=== PATIENT | female | born 1950 | race Caucasian/White ===

== ENCOUNTER 2016-08-30 21:31 | Inpatient (IN) | payer MEDICARE ==
[~2016-08-30] VITALS: Ht 170.2 cm; Wt 80.0 kg
[~2016-08-30 21:31] MED LIST: ALPR.25 PO; CIPR-9 PO; CLAR10CA3 PO; DOCET20P IV; LACT PO; LOSA50TA PO; NAPR220T95 PO; ZANT150T2 PO; [UNRECOGNIZED DRUG - CODE] IV; [UNRECOGNIZED DRUG - OTHER] PO
[2016-08-30 21:33] VITALS: BP 147/73; PULSE 132; RESP 20; TEMP 98.4; O2SAT 97
[2016-08-30] MEDS ORDERED: SODIUM CHLORIDE 0.9% FLUSH 5 ML FLUSH IVF PRN (22:15)
[2016-08-30] MEDS ORDERED: diphenhydrAMINE HCL 50 MG/ML VIAL IV PUSH ONE (22:15)
--- NOTE | 2016-08-30 22:49 | RADRPT ---
EXAM DATE/TIME: 08/30/2016 22:33 [place] COMPARISON: CHEST PA & LAT, June 27, 2016, 21:47. INDICATIONS : Fever. MEDICAL HISTORY : Carcinoma, breast. SURGICAL HISTORY : None. ENCOUNTER: Initial ACUITY: 1 day PAIN SCORE: 0/10 LOCATION: Bilateral chest FINDINGS: PA and lateral views of the chest demonstrate the lungs to be symmetrically aerated without evidence of mass, infiltrate or effusion. The cardiomediastinal contours are unremarkable. Osseous structure s are intact. CONCLUSION: No acute disease. Harry Orozco MD FACR on August 30, 2016 at 22:47 Board Certified Radiologist. This report was verified electronically.
[2016-08-30 23:00] VITALS: BP 135/68; PULSE 116; RESP 18; O2SAT 99
[2016-08-30 23:15] LABS: HEMATOCRIT 36.7 % (35.0-46.0); MEAN CELL VOLUME 92.7 FL (80.0-100.0); MEAN CORPUSCULAR HEMOGLOBIN 31.1 PG (27.0-34.0); MEAN CORPUSCULAR HGB CONC 33.5 % (32.0-36.0); PLATELET COUNT 127 TH/MM3 (150-450); RED BLOOD COUNT 3.96 MIL/MM3 (4.00-5.30); RED CELL DISTRIBUTION WIDTH 16.6 % (11.6-17.2); WHITE BLOOD COUNT 14.9 TH/MM3 (4.0-11.0)
[2016-08-30 23:17] LABS: HEMO FLAGS AUTO DIFF
[2016-08-30 23:18] LABS: APTT (PATIENT) 24.3 SEC (24.3-30.1); PROTHROMBIN TIME - PATIENT 10.8 SEC (9.8-11.6)
[2016-08-30 23:23] LABS: BACTERIA, URINE RARE /hpf; BLOOD, URINE TRACE (NEG); COMMENT (UR) CULTURE INDICATED; CULTURE IF INDICATED CULTURE INDICATED; GLUCOSE,URINE NEG (NEG); KETONE, URINE NEG (NEG); MUCUS URINE FEW /lpf (OCC); NITRITE,URINE NEG (NEG); PH, URINE 5.5 (5.0-8.5); SQUAMOUS EPITHELIAL CELL URINE 1 /hpf (0-5); TRANSITIONAL EPI CELLS, URINE 2 /hpf; URINE COLOR YELLOW (YELLW/STRAW)
[2016-08-30 23:29] LABS: ALKALINE PHOSPHATASE 92 U/L (45-117); ALT (GPT) 31 U/L (10-53); ANION GAP 10 MEQ/L (5-15); AST (GOT) 31 U/L (15-37); BICARBONATE 25.3 MEQ/L (21.0-32.0); BLOOD UREA NITROGEN 15 MG/DL (7-18); CHLORIDE 106 MEQ/L (98-107); GLOMERULAR FILTRATION RATE 57 ML/MIN (>89); MAGNESIUM 1.9 MG/DL (1.5-2.5); POTASSIUM 3.7 MEQ/L (3.5-5.1); SODIUM (NA) 141 MEQ/L (136-145); TOTAL BILIRUBIN ADULT 0.6 MG/DL (0.2-1.0)
[2016-08-30 23:49] LABS: BANDS 26 % (0-6); CORRECTED NUCLEATED RBC 3 /100 WBC (0-0); DOHLE BODIES PRESENT (NONE SEEN); METAMYELOCYTES 23 % (0-1); MYELOCYTES 23 % (0-0); NEUTROPHIL # MANUAL DIFF 12.8 TH/MM3 (1.8-7.7); PLATELET ESTIMATE SMEAR LOW (NORMAL); PLATELET MORPHOLOGY NORMAL (NORMAL); POLYS (SEG NEUTROPHILS) 8 % (16-70); PROMYELOCYTES 6 % (0-0); SCAN/DIFF FINAL DIFF MANUAL; WBC DIFF SAMPLE 100
[2016-08-30 23:50] LABS: POLYCHROMASIA 2.1 % (0.0-1.9); TOXIC GRANULATION 2+ (NORMAL)
[2016-08-31] VITALS (9 sets, daily range): BP systolic 116–145; BP diastolic 60–72; PULSE 87–110; RESP 16–20; TEMP 97.7–100.3; O2SAT 93–98
[2016-08-31] MEDS ORDERED: CIPROFLOXACIN 400 MG PREMIX 200 ML IV ONE (00:30)
[2016-08-31] MEDS ORDERED: SODIUM CHLOR 0.9% 1000 ML INJ 1,000 ML IV ONE (00:30)
[2016-08-31] MEDS ORDERED: NALOXONE HCL 0.4 MG/ML AMP IV PRN (02:00)
[2016-08-31] MEDS ORDERED: ALPRAZolam 0.25 MG TAB PO PRN (02:00)
[2016-08-31] MEDS ORDERED: SODIUM CHLORIDE 0.9% FLUSH 5 ML FLUSH FLUSH PRN (02:00)
--- NOTE | 2016-08-31 02:03 | PD ---
HPI Chief Complaint: Fever Time Seen by Provider: 21:57 Travel History International Travel<30 days: No Contact w/Intl Traveler<30days: No Traveled to known affect area: No History of Present Illness HPI Patient states 6-year-old female with history of breast cancer on chemotherapy followed by Dr. Geoffrey Calix presents today to the emergency department for complaints of fever and rash. Patient states that she's had these reactions after her previous bouts of chemotherapy. She saw Dr. Calix who prescribed her prednisone and Benadryl and states that it has been helping. Patient called the office today and discussed with on-call provider Dr. Epi Ren who recommended coming to the ER to be evaluated. Patient states she's also had fever at home to a MAXIMUM TEMPERATURE of 101.5. Denies any cough shortness of breath dysuria states symptoms began on for approximately 2 days. Last time she had this could have urinary tract infection and to be admitted to the hospital. PFSH Past Medical History Arthritis: Yes (generalized) Asthma: Yes (when around dogs) Cancer: Yes (breast--2015) Cardiovascular Problems: Yes High Cholesterol: Yes (diet controlled) Chemotherapy: Yes (started june 2016) Diminished Hearing: No Endocrine: No Gastrointestinal Disorders: Yes (gastroparesis) GERD: Yes Genitourinary: No Hypertension: Yes Immune Disorder: No Implanted Vascular Access Dvce: Yes Musculoskeletal: Yes Neurologic: No Psychiatric: No Reproductive: No Respiratory: Yes Immunizations Current: Yes Triglycerides - High: Yes ?: Not Menopausal: Yes Past Surgical History Appendectomy: Yes Cholecystectomy: Yes Genitourinary Surgery: Yes (bowel resection--1992--ruptured appendix) Hysterectomy: Yes Other Surgery: Yes (lumpectomy--2015) Social History Alcohol Use: Yes (occasional) Tobacco Use: No Substance Use: No Allergies-Medications (Allergen,Severity, Reaction): Coded Allergies: Penicillin (Verified Allergy, Severe, Hives, 06/27/16) Reported Meds & Prescriptions Reported Meds & Active Scripts Active Acidophilus/l-Sporogenes (Lactobacillus Acidophilus) 1 Tab Tab 1 Tab PO Q12HR 30 Days Reported Xanax (Alprazolam) 0.25 Mg Tab 0.25 Mg PO HS PRN Zantac (Ranitidine HCl) 150 Mg Tab 150 Mg PO HS [bephanophal] 1 Cap PO TID Losartan (Losartan Potassium) 50 Mg Tab 50 Mg PO DAILY Review of Systems Except as stated in HPI: all other systems reviewed are Neg Physical Exam Narrative GENERAL: Well-developed well-nourished alopecia distress. Significant hives. SKIN: Warm and dry. Patient has hives confluent on the scalp and posterior neck , there also present on the chest abdomen and lower extremities. HEAD: Atraumatic. Normocephalic. EYES: Pupils equal and round. No scleral icterus. No injection or drainage. ENT: No nasal bleeding or discharge. Mucous membranes pink and moist. NECK: Trachea midline. No JVD. CARDIOVASCULAR: Regular rate and rhythm. No murmur appreciated. RESPIRATORY: No accessory muscle use. Clear to auscultation. Breath sounds equal bilaterally. GASTROINTESTINAL: Abdomen soft, non-tender, nondistended. Hepatic and splenic margins not palpable. MUSCULOSKELETAL: No obvious deformities. No clubbing. No cyanosis. No edema. NEUROLOGICAL: Awake and alert. No obvious cranial nerve deficits. Motor grossly within normal limits. Normal speech. PSYCHIATRIC: Appropriate mood and affect; insight and judgment normal. Data Data Last Documented VS Vital Signs Date Time Temp Pulse Resp B/P Pulse Ox O2 Delivery O2 Flow Rate FiO2 08/30/16 21:47 Room Air 08/30/16 21:33 98.4 132 20 147/73 97 Orders Complete Blood Count With Diff (08/30/16 22:05) Comprehensive Metabolic Panel (08/30/16 22:05) Magnesium (Mg) (08/30/16 22:05) Prothrombin Time / Inr (Pt) (08/30/16 22:05) Act Partial Throm Time (Ptt) (08/30/16 22:05) Lipase (08/30/16 22:05) Ecg Monitoring (08/30/16 22:05) Bilateral Bp Monitoring (08/30/16 22:05) Iv Access Insert/Monitor (08/30/16 22:05) Oximetry (08/30/16 22:05) Oxygen Administration (08/30/16 22:05) Sodium Chloride 0.9% Flush (Ns Flush) (08/30/16 22:15) Diphenhydramine Inj (Benadryl Inj) (08/30/16 22:15) Chest, Pa & Lat (08/30/16 ) Urinalysis - C+S If Indicated (08/30/16 22:38) Urine Culture (08/30/16 23:10) Sodium Chlor 0.9% 1000 Ml Inj (Ns 1000 M (08/31/16 00:30) Ciprofloxacin 400 Mg Premix (Cipro 400 M (08/31/16 00:30) Lactic Acid (08/31/16 00:17) Admit Order (Ed Use Only) (08/31/16 ) Labs Laboratory Tests Test 08/30/16 08/30/16 23:00 23:10 White Blood Count 14.9 TH/MM3 Red Blood Count 3.96 MIL/MM3 Hemoglobin 12.3 GM/DL Hematocrit 36.7 % Mean Corpuscular Volume 92.7 FL Mean Corpuscular Hemoglobin 31.1 PG Mean Corpuscular Hemoglobin 33.5 % Concent Red Cell Distribution Width 16.6 % Platelet Count 127 TH/MM3 Mean Platelet Volume 8.7 FL Neutrophils (%) (Auto) % Lymphocytes (%) (Auto) % Monocytes (%) (Auto) % Eosinophils (%) (Auto) % Basophils (%) (Auto) % Neutrophils # (Auto) TH/MM3 Lymphocytes # (Auto) TH/MM3 Monocytes # (Auto) TH/MM3 Eosinophils # (Auto) TH/MM3 Basophils # (Auto) TH/MM3 CBC Comment AUTO DIFF Differential Total Cells 100 Counted Neutrophils % (Manual) 8 % Band Neutrophils % 26 % Lymphocytes % 6 % Monocytes % 8 % Neutrophils # (Manual) 12.8 TH/MM3 Metamyelocytes 23 % Myelocytes 23 % Promyelocytes 6 % Nucleated Red Blood Cells 3 /100 WBC Differential Comment FINAL DIFF MANUAL Toxic Granulation 2+ Dohle Bodies PRESENT Platelet Estimate LOW Platelet Morphology Comment NORMAL Polychromasia 2.1 % Red Cell Morphology Comment NORMAL Prothrombin Time 10.8 SEC Prothromb Time International 1.0 RATIO Ratio Activated Partial 24.3 SEC Thromboplast Time Sodium Level 141 MEQ/L Potassium Level 3.7 MEQ/L Chloride Level 106 MEQ/L Carbon Dioxide Level 25.3 MEQ/L Anion Gap 10 MEQ/L Blood Urea Nitrogen 15 MG/DL Creatinine 0.98 MG/DL Estimat Glomerular Filtration 57 ML/MIN Rate Random Glucose 151 MG/DL Calcium Level 8.7 MG/DL Magnesium Level 1.9 MG/DL Total Bilirubin 0.6 MG/DL Aspartate Amino Transf 31 U/L (AST/SGOT) Alanine Aminotransferase 31 U/L (ALT/SGPT) Alkaline Phosphatase 92 U/L Total Protein 6.6 GM/DL Albumin 3.3 GM/DL Lipase 136 U/L Urine Color YELLOW Urine Turbidity HAZY Urine pH 5.5 Urine Specific [place] 1.016 Urine Protein NEG mg/dL Urine Glucose (UA) NEG mg/dL Urine Ketones NEG mg/dL Urine Occult Blood TRACE Urine Nitrite NEG Urine Bilirubin NEG Urine Urobilinogen LESS THAN 2.0 MG/DL Urine Leukocyte Esterase MOD Urine RBC 3 /hpf Urine WBC 19 /hpf Urine Squamous Epithelial 1 /hpf Cells Urine Transitional Epithelial 2 /hpf Cells Urine Amorphous Sediment RARE Urine Bacteria RARE /hpf Urine Mucus FEW /lpf Microscopic Urinalysis Comment CULTURE INDICATED MDM Medical Decision Making Medical Screen Exam Complete: Yes Emergency Medical Condition: Yes Differential Diagnosis Hives, UTI, sepsis, neutropenic fever, immunocompromised. Narrative Course Patient was roomed in the emergency department, she appears well and apparent distress. She's not been having any dysuria at this time. She is tachycardic and has pruritic hives. She was given Benadryl IV. This significantly reduced her high burden as well as her symptoms. Labs do show an white blood cell count of 14,000 with 23% bands. She is tachycardic and this would meet surge criteria. Her UA is returned and does show moderate leukocyte Estrace and a non -contaminated sample. This confirms UTI with sepsis. Lactic acid was sent normal saline was started. Heart rate did normalize. Did discuss with Dr. Taylor to recommends overnight observation and start ciprofloxacin given her last urine culture was hopkins sensitive. Lactic acid is 2.3. Discussed with Dr. Wilcox who will admit. Hives most likely from consultation of chemotherapy and air improvement in the emergency department. Diagnosis Primary Impression: Sepsis Qualified Code: A41.9 - Sepsis, due to unspecified organism Additional Impressions: Urinary tract infection Hives Admitting Information Admitting Physician Requests: Admit Condition: Stable Everett Pope MD Aug 31, 2016 02:03
[2016-08-31] MEDS: CEFEPIME INJ 2,000 MG in SODIUM CHLORIDE 0.9% INJ 100 ML IV SCH ×3 (05:08→17:22)
[2016-08-31] MEDS: SODIUM CHLOR 0.9% 1000 ML INJ 1,000 ML IV SCH ×2 (05:09→11:40)
--- NOTE | 2016-08-31 05:32 | HHI.HP ---
[facility] Service [facility] Hospitalists Primary Care Physician Jaydon Diaz MD Admission Diagnosis Sepsis, UTI, Chemo Diagnoses: (1) Hives (2) Urinary tract infection (3) Neutropenic fever (4) Sepsis (5) Diarrhea (6) Nausea & vomiting Chief Complaint: hives, fever 101.6 Travel History International Travel<30 Days: No Contact w/Intl Traveler <30 Da: No Traveled to Known Affected Are: No History of Present Illness Mrs. Cheung is a 66-year-old patient with a history of breast cancer on chemotherapy (followed by Dr. Calix) who presented to the emergency room on 08/30 with complaint of fever and hives. WBC elevated at 14.9, urinalysis suggestive of infection with culture pending. The patient is tachycardic and meets sepsis criteria with leukocytosis and UTI. The patient is seen in the ER where she reports that she developed severe, diffuse, pruritic hives all over her body yesterday- last chemotherapy was given August 22. She took one dose of Biotin yesterday to promote hair growth due to alopecia secondary to chemotherapy. No other medication changes - has taken Biotin in the past without reaction. Denies food allergies. Reports allergies to dogs, cats, dust, and penicillin. She has been having diarrhea, nausea, and vomiting which is most likely due to chemotherapy, however , she did receive Ciprofloxacin for UTI in July. . Review of Systems Constitutional: COMPLAINS OF: Fatigue, Fever Respiratory: DENIES: Cough, Shortness of breath Gastrointestinal: COMPLAINS OF: Diarrhea, Nausea, Vomiting Genitourinary: DENIES: Hematuria, Dysuria Integumentary: COMPLAINS OF: Pruritus, Rash Other all systems are reviewed and are otherwise negative . 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 Gastroparesis Hypertension (more then 10 years.) Osteopenia Rosacea Diverticulosis GERD Endometriosis . Past Surgical History Right lumpectomy and sentinel node bx in 2015 - 04/30/2016 right lumpectomy and right axillary sentinel node Needle bx of right breast in 2016 - Plastic surgery in 2012 - face lift Cholecystectomy in 2008 - 02/08/2009 Appendectomy and partial right colectomy including cecum in 1992 - ruptured appendix with peritonitis. Removal of remaining ovary and endometriosis- Abdominal hysterectomy and single oophorectomy in 1984 . Reported Medications Reported Meds & Active Scripts Active Acidophilus/l-Sporogenes (Lactobacillus Acidophilus) 1 Tab Tab 1 Tab PO Q12HR 30 Days Reported Xanax (Alprazolam) 0.25 Mg Tab 0.25 Mg PO HS PRN Zantac (Ranitidine HCl) 150 Mg Tab 150 Mg PO HS [bephanophal] 1 Cap PO TID Losartan (Losartan Potassium) 50 Mg Tab 50 Mg PO DAILY Allergies: Coded Allergies: Penicillin (Verified Allergy, Severe, Hives, 06/27/16) Active Ordered Medications Current Medications IV Flush (NS Flush) 2 ml UNSCH PRN IVF FLUSH AFTER USING IV ACCESS Last administered on 08/30/16 23:22; Start 08/30/16 at 22:15; Stop 08/31/16 at 02:01 ; Status DC Diphenhydramine HCl 25 mg 25 mg ONCE ONCE IV PUSH Last administered on 23:21; Start 08/30/16 at 22:15; Stop 08/30/16 at 22:16; Status DC Sodium Chloride 1,000 ml @ 999 mls/hr BOLUS ONCE IV Last administered on 08/31 01:33; Start 08/31/16 at 00:30; Stop 08/31/16 at 01:30; Status DC Ciprofloxacin/ Dextrose 200 ml @ 200 mls/hr ONCE ONCE IV Last administered on 08/31/16 01:32; Start 08/31/16 at 00:30; Stop 08/31/16 at 01:29; Status DC Sodium Chloride (NS 1000 ml Inj) 1,000 ml @ 100 mls/hr Q10H IV Last administered on 08/31/16 05:09; Start 08/31/16 at 02:00 IV Flush (NS Flush) 2 ml UNSCH PRN FLUSH FLUSH AFTER USING IV ACCESS; Start at 02:00 IV Flush (NS Flush) 2 ml BID FLUSH ; Start 08/31/16 at 09:00 Ondansetron HCl (Zofran Inj) 4 mg Q6H PRN IVP NAUSEA OR VOMITING; Start at 02:00 Enoxaparin Sodium (Lovenox Inj) 40 mg Q24H SQ ; Start 08/31/16 at 09:00 Naloxone HCl 0.4 mg 0.4 mg UNSCH PRN IV SEE LABEL COMMENTS; Start 08/31/16 at 02:00 Cefepime HCl/ Sodium Chloride (Maxipime Inj/NS Inj) 100 ml @ 200 mls/hr Q8H IV Last administered on 08/31/16t 05:08; Start 08/31/16 at 02:00 Alprazolam (Xanax) 0.25 mg HS PRN PO INSOMNIA; Start 08/31/16 at 02:00 Lactobacillus Acidophilus (Lactinex) 1 tab Q12HR PO ; Start 08/31/16 at 09:00 Losartan Potassium (Cozaar) 50 mg DAILY PO ; Start 08/31/16 at 09:00 Famotidine (Pepcid) 20 mg HS PO ; Start 08/31/16 at 21:00 Family History Small strokes, cerebrovascular dementia - father First cousin with breast CA Mother in her 90's alive and well . Social History Tobacco: denies Alcohol: social . Physical Exam Vital Signs Vital Signs Date Time Temp Pulse Resp B/P Pulse Ox O2 Delivery O2 Flow Rate FiO2 08/31/16 05:13 102 18 119/60 98 08/31/16 01:45 110 18 145/63 98 Room Air 08/31/16 01:42 99.1 109 18 145/63 95 Room Air 08/31/16 01:42 Room Air 08/30/16 23:00 116 18 135/68 99 Room Air 08/30/16 21:47 Room Air 08/30/16 21:33 98.4 132 20 147/73 97 Room Air Physical Exam GENERAL: This is a well-nourished, well-developed patient, in no apparent distress. SKIN: No ecchymoses or lesions. Cool and dry. Diffuse hives on legs, arms, head , chest. Alopecia. HEAD: Atraumatic. Normocephalic. EYES: No scleral icterus. No injection or drainage. ENT: Nose without bleeding, purulent drainage. NECK: Trachea midline. No JVD or lymphadenopathy. CARDIOVASCULAR: Regular rate and rhythm without murmurs, gallops, or rubs. RESPIRATORY: Clear to auscultation. Breath sounds equal bilaterally. No wheezes , rales, or rhonchi. GASTROINTESTINAL: Abdomen soft, non-tender, nondistended. No guarding. MUSCULOSKELETAL: Extremities without clubbing, cyanosis, or edema. No calf tenderness. NEUROLOGICAL: Awake and alert. Motor and sensory grossly within normal limits. Normal speech. . Laboratory Laboratory Tests Test 08/30/16 08/30/16 08/31/16 23:00 23:10 00:45 White Blood Count 14.9 Red Blood Count 3.96 Hemoglobin 12.3 Hematocrit 36.7 Mean Corpuscular Volume 92.7 Mean Corpuscular Hemoglobin 31.1 Mean Corpuscular Hemoglobin 33.5 Concent Red Cell Distribution Width 16.6 Platelet Count 127 Mean Platelet Volume 8.7 Neutrophils (%) (Auto) Lymphocytes (%) (Auto) Monocytes (%) (Auto) Eosinophils (%) (Auto) Basophils (%) (Auto) Neutrophils # (Auto) Lymphocytes # (Auto) Monocytes # (Auto) Eosinophils # (Auto) Basophils # (Auto) CBC Comment AUTO DIFF Differential Total Cells 100 Counted Neutrophils % (Manual) 8 Band Neutrophils % 26 Lymphocytes % 6 Monocytes % 8 Neutrophils # (Manual) 12.8 Metamyelocytes 23 Myelocytes 23 Promyelocytes 6 Nucleated Red Blood Cells 3 Differential Comment FINAL DIFF MANUAL Toxic Granulation 2+ Dohle Bodies PRESENT Platelet Estimate LOW Platelet Morphology Comment NORMAL Polychromasia 2.1 Red Cell Morphology Comment NORMAL Prothrombin Time 10.8 Prothromb Time International 1.0 Ratio Activated Partial 24.3 Thromboplast Time Sodium Level 141 Potassium Level 3.7 Chloride Level 106 Carbon Dioxide Level 25.3 Anion Gap 10 Blood Urea Nitrogen 15 Creatinine 0.98 Estimat Glomerular Filtration 57 Rate Random Glucose 151 Calcium Level 8.7 Magnesium Level 1.9 Total Bilirubin 0.6 Aspartate Amino Transf 31 (AST/SGOT) Alanine Aminotransferase 31 (ALT/SGPT) Alkaline Phosphatase 92 Total Protein 6.6 Albumin 3.3 Lipase 136 Urine Color YELLOW Urine Turbidity HAZY Urine pH 5.5 Urine Specific [place] 1.016 Urine Protein NEG Urine Glucose (UA) NEG Urine Ketones NEG Urine Occult Blood TRACE Urine Nitrite NEG Urine Bilirubin NEG Urine Urobilinogen LESS THAN 2.0 Urine Leukocyte Esterase MOD Urine RBC 3 Urine WBC 19 Urine Squamous Epithelial 1 Cells Urine Transitional Epithelial 2 Cells Urine Amorphous Sediment RARE Urine Bacteria RARE Urine Mucus FEW Microscopic Urinalysis Comment CULTURE INDICATED Lactic Acid Level 2.4 Date/Time Procedure Status Source Growth 08/30/16 23:10 Urine Culture Received Urine Clean Catch Pending Result Diagram: 08/30/16 2300 08/30/16 2300 Imaging Last Impressions Chest X-Ray 08/30/16 0000 Signed Impressions: Service Date/Time: August 22:33 - CONCLUSION: No acute disease. Harry Orozco MD FACR Assessment and Plan Problem List: (1) Hives ICD Code: L50.9 Status: Acute (2) Neutropenic fever ICD Code: D70.9 Status: Acute (3) Urinary tract infection ICD Code: N39.0 Status: Acute (4) Diarrhea ICD Code: R19.7 Status: Acute (5) Nausea & vomiting ICD Code: R11.2 Status: Acute (6) Sepsis ICD Code: A41.9 Status: Acute Assessment and Plan Sepsis - Lactic acid 2.4 - WBC 14.9; patient tachycardia - Normal saline at 100 cc per hour - Cefepime 2 g IV every 8 hours UTI Neutropenic Fever - Empiric antibiotic treatment with cefepime - Urine culture pending; adjust medications as indicated - Consult oncology - patient follows with Dr. Calix for breast cancer Hives - Benadryl 25 mg IV q4h PRN pruritus Diarrhea, n/v - likely secondary to chemotherapy - check for c. diff given recent treatment with ciprofloxacin in July 2016 DVT prophylaxis - lovenox 40 mg subq daily Written by Chata Munoz, acting as scribe for Dr. Gee on 08/31/16 at 05:24. .The documentation accurately reflects the work performed [id number] by me on 08/31/16 at 0524 Discussed Condition With patient, patient's , ER physician, and PRODUCTION HARDENER . Physician Certification 2 Midnight Certification Type: Admission for Inpatient Services Order for Inpatient Services The services are ordered in accordance with Medicare regulations or non- Medicare payer requirements, as applicable. In the case of services not specified as inpatient-only, they are appropriately provided as inpatient services in accordance with the 2-midnight benchmark. Estimated LOS (days): 3 days is the estimated time the patient will need to remain in the hospital, assuming treatment plan goals are met and no additional complications. Post-Hospital Plan: Not yet determined Problem Qualifiers (1) Sepsis: Qualified Code: A41.9 - Sepsis, due to unspecified organism Chata Munoz Aug 31, 2016 05:32 Neftaly Gee MD Aug 31, 2016 08:37
[2016-08-31] MEDS: ENOXAPARIN SODIUM 40 MG/0.4 ML SYRINGE SQ SCH (09:00)
[2016-08-31] MEDS: SODIUM CHLORIDE 0.9% FLUSH 5 ML FLUSH FLUSH SCH ×2 (09:04→20:18)
[2016-08-31] MEDS: LOSARTAN 50 MG TAB PO SCH (09:04)
[2016-08-31] MEDS: LACTOBACILLUS ACIDOPHILUS TAB PO SCH ×2 (09:04→20:18)
[2016-08-31] MEDS: diphenhydrAMINE HCL 50 MG/ML VIAL IV PUSH PRN ×4 (09:09→21:31)
[2016-08-31] MEDS ORDERED: methylPREDNISolone SOD SUCC 125 MG/2 ML VIAL IV PUSH ONE (09:15)
[2016-08-31] MEDS ORDERED: CETIRIZINE HCL 10 MG TAB PO ONE (09:15)
--- NOTE | 2016-08-31 13:37 | HHI.PR ---
Addendum to Inpatient Note Addendum Reason: Additional Documentation Additional Information Discussed with Dr Calix oncology. He recommends starting steroids and also zyrtec as is a reaction from chemo. If patient continues to have rash might consider changing abx Ade Oviedo MD Aug 31, 2016 13:37
[2016-08-31] MEDS: FAMOTIDINE 20 MG TAB PO SCH (20:18)
--- NOTE | 2016-08-31 23:32 | MB ---
cc: LEIGH ANN CARTWRIGHT DATE OF CONSULTATION 08/31/16 REASON FOR CONSULTATION A 66-year female status post chemotherapy with fever and pruritic rash. PATIENT PROFILE The patient is a 66-year-old female. She is . She has two children, a son and daughter. She was born in [place] and has lived in [place] since 1958. 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 She has approximately one drink per week. Her is a CPA. She has never smoked. HISTORY OF PRESENT ILLNESS The patient is a 66-year female who had a right lumpectomy and sentinel lymph node biopsy on 04/30/2016. She was found to have a pathologic T1B N0 M0 ER positive, HER2/radha negative breast cancer; tumor size approximately 1 cm. A mammoprint assay put her in the high risk category. She has been undergoing chemotherapy and received her final cycle of chemotherapy consisting of Cytoxan and Taxotere on 08/22/2016. Yesterday she contacted our office as she was having diffuse hives. She was given antihistamines. Over the evening, she developed a temperature to 101.5. She was instructed to go to the hospital and she has been admitted. She has been placed on cefepime. She continues to have worsening hives. They are pruritic. There has been no desquamation of skin. There is no shortness of breath. No dysuria. PAST SURGICAL HISTORY 1. Core needle biopsy right breast 04/11/2016 revealing well differentiated invasive ductal carcinoma ER 93%, IA zero, HER2/radha negative. 2. Right lumpectomy with residual invasive ductal carcinoma. Overall, grade 3, five axillary lymph nodes negative, final pathology T1B N0 M0 ER positive. 3. On 05/14/2016 the patient had additional surgery for a positive inferior margin with intraductal cancer and final pathology revealed no cancer at margins. 4. Cholecystectomy 5. Plastic surgery 2012 with face left 6. Appendectomy and partial right colectomy including cecum in 1992 for ruptured appendix 7. Abdominal hysterectomy and single oophorectomy 1984 8. Removal of remaining ovary for endometriosis. PAST MEDICAL HISTORY 1. Stage T1B N0 M0 breast cancer 2. Gastroparesis 3. Hypertension 4. Osteopenia 5. Diarrhea 6. Diverticulosis. ALLERGIES PENICILLIN - SKIN RASH AND HIVES MEDICATIONS Prior to admission 1. Xanax 2. Losartan 3. Zantac. FAMILY HISTORY Noncontributory. REVIEW OF SYSTEMS No change in vision or hearing. No chest pain, palpitations, no shortness of breath. No dysuria, frequency, hematuria. No abdominal pain. She has developed a rapidly progressive pruritic rash which is essentially hives. No neurologic or psychiatric problems. LABORATORY DATA Hemoglobin 12, white count 14,000, platelets 127,000. It should be noted that she received Neulasta following her chemotherapy. Lytes, BUN, creatinine, liver function tests are notable only for glucose of 151 and albumin 3.3. Physical Exam: appears well except covered with hives and bald Afebrile, RR 18, Pulse 80, Afebrile Heent: bald Lymphatics: no adenopathy Breasts: no masses heart reg rhythm Lungs clear Abd: soft without tenderness or enlargement of liver or spleen Extrem: no edema Neuro: normal Psychiatric: normal Skin: hives over large portions of the skin Extrem: trace edema ASSESSMENT T1B N0 M0 ER positive breast cancer status post four cycles of Cytoxan Taxotere. She now has extensive hives which I suspect are an allergic reaction. I believe that this is probably responsible for the fevers. PLAN 1. Prednisone 40 mg a day. 2. Zyrtec 1 tablet a day, 3. Given the fevers, would continue cefepime. If hives do not resolve quickly would stop cefepime and would avoid PCNs and Cephalosporins 4. Await results of cultures. 5. The above was discussed with the admitting physician, Dr. Ade Oviedo. MD CARL Harry/ /8:02 PM /11:17 PM [place]
[2016-09-01] VITALS (7 sets, daily range): BP systolic 100–156; BP diastolic 51–88; PULSE 86–102; RESP 17–20; TEMP 97.4–100.2; O2SAT 95–100
[2016-09-01] MEDS: CEFEPIME INJ 2,000 MG in SODIUM CHLORIDE 0.9% INJ 100 ML IV SCH (01:07)
[2016-09-01] MEDS: SODIUM CHLOR 0.9% 1000 ML INJ 1,000 ML IV SCH ×3 (01:08→17:49)
[2016-09-01] MEDS: ONDANSETRON HCL 4 MG/2 ML VIAL IVP PRN ×2 (04:15→08:37)
[2016-09-01] MEDS: diphenhydrAMINE HCL 50 MG/ML VIAL IV PUSH PRN ×5 (06:20→21:44)
[2016-09-01 07:57] LABS: AUTOMATED NEUTROPHIL # 39.9 TH/MM3 (1.8-7.7); BASOPHIL # 0.1 TH/MM3 (0-0.2); BASOPHIL % 0.3 % (0.0-2.0); HEMATOCRIT 34.8 % (35.0-46.0); LYMPH % 2.2 % (9.0-44.0); LYMPHOCYTE # 0.9 TH/MM3 (1.0-4.8); MEAN CELL VOLUME 93.5 FL (80.0-100.0); MEAN CORPUSCULAR HEMOGLOBIN 30.5 PG (27.0-34.0); MEAN CORPUSCULAR HGB CONC 32.6 % (32.0-36.0); MONO % 2.1 % (0.0-8.0); NEUT % 95.4 % (16.0-70.0); PLATELET COUNT 168 TH/MM3 (150-450); RED BLOOD COUNT 3.72 MIL/MM3 (4.00-5.30); RED CELL DISTRIBUTION WIDTH 16.6 % (11.6-17.2); WHITE BLOOD COUNT 41.8 TH/MM3 (4.0-11.0)
[2016-09-01 08:08] LABS: HEMO FLAGS AUTO DIFF
[2016-09-01] MEDS: ENOXAPARIN SODIUM 40 MG/0.4 ML SYRINGE SQ SCH ×2 (08:27→13:07)
[2016-09-01 08:28] LABS: BICARBONATE 25.2 MEQ/L (21.0-32.0)
[2016-09-01] MEDS: SODIUM CHLORIDE 0.9% FLUSH 5 ML FLUSH FLUSH SCH ×2 (08:28→21:47)
[2016-09-01 08:32] LABS: POTASSIUM 2.9 MEQ/L (3.5-5.1)
[2016-09-01] MEDS: predniSONE 20 MG TAB PO SCH (08:35)
[2016-09-01] MEDS: LOSARTAN 50 MG TAB PO SCH (08:35)
[2016-09-01] MEDS: CETIRIZINE HCL 10 MG TAB PO SCH (08:36)
[2016-09-01] MEDS: LACTOBACILLUS ACIDOPHILUS TAB PO SCH (08:36)
[2016-09-01] MEDS ORDERED: CIPROFLOXACIN 250 MG TAB PO SCH (09:00)
[2016-09-01] MEDS ORDERED: diphenhydrAMINE HCL 50 MG/ML VIAL IV PUSH ONE (09:45)
[2016-09-01 10:37] LABS: BANDS 45 % (0-6); DOHLE BODIES PRESENT (NONE SEEN); METAMYELOCYTES 9 % (0-1); MYELOCYTES 3 % (0-0); NEUTROPHIL # MANUAL DIFF 38.9 TH/MM3 (1.8-7.7); PLATELET ESTIMATE SMEAR NORMAL (NORMAL); PLATELET MORPHOLOGY NORMAL (NORMAL); POLYS (SEG NEUTROPHILS) 32 % (16-70); PROMYELOCYTES 4 % (0-0); SCAN/DIFF FINAL DIFF MANUAL; TOXIC GRANULATION 3+ (NORMAL); WBC DIFF SAMPLE 100
[2016-09-01] MEDS ORDERED: LEVOFLOXACIN 750 MG PREMIX INJ 150 ML IV SCH (10:45)
--- NOTE | 2016-09-01 11:08 | HHI.PR ---
Subjective Remarks Patient is in bed, says rash has improved on the head only. Says is red and very itchy. No fever or chills. Was nauseated overnight and did vomit once. Also noticed her hands are swollen today. No nausea in the morning and was able to keep down food. Objective Vitals Vital Signs Date Time Temp Pulse Resp B/P Pulse Ox O2 Delivery O2 Flow Rate FiO2 09/01/16 08:00 97.4 91 19 156/72 100 09/01/16 04:00 97.6 95 20 143/88 97 09/01/16 00:00 97.8 86 20 135/76 97 08/31/16 20:27 98 08/31/16 20:00 97.7 97 20 116/61 96 08/31/16 15:49 99.1 99 18 127/61 93 08/31/16 12:00 100.3 106 18 122/60 96 I/O 08/31/16 08/31/16 08/31/16 09/01/16 09/01/16 09/01/16 06:59 14:59 22:59 06:59 14:59 22:59 Intake Total 2862 ml 858 ml 0 ml 120 ml Output Total 750 ml 300 ml 275 ml Balance 2112 ml 558 ml -275 ml 120 ml Intake Oral 720 ml 120 ml 0 ml 120 ml IV Total 2142 ml 738 ml Output Urine Total 750 ml 300 ml 250 ml Emesis 25 ml # Bowel Movements 1 Result Diagram: 09/01/16 0620 09/01/16 0620 Imaging Last Impressions Chest X-Ray 08/30/16 0000 Signed Impressions: Service Date/Time: August 22:33 - CONCLUSION: No acute disease. Harry Orozco MD FACR Objective Remarks GENERAL: This is a well-nourished, well-developed patient, in no apparent distress. SKIN: Diffuse hives on legs, arms, head, chest. Alopecia. Hives on head are improving. No ecchymoses or lesions. Cool and dry. HEAD: Atraumatic. Normocephalic. EYES: No scleral icterus. No injection or drainage. ENT: Nose without bleeding, purulent drainage. NECK: Trachea midline. No JVD or lymphadenopathy. CARDIOVASCULAR: Regular rate and rhythm without murmurs, gallops, or rubs. RESPIRATORY: Clear to auscultation. Breath sounds equal bilaterally. No wheezes , rales, or rhonchi. GASTROINTESTINAL: Abdomen soft, non-tender, nondistended. No guarding. MUSCULOSKELETAL: Extremities without clubbing, cyanosis, or edema. No calf tenderness. NEUROLOGICAL: Awake and alert. Motor and sensory grossly within normal limits. Normal speech. A/P Problem List: (1) Hives ICD Code: L50.9 Status: Acute (2) Neutropenic fever ICD Code: D70.9 Status: Acute (3) Urinary tract infection ICD Code: N39.0 Status: Acute (4) Diarrhea ICD Code: R19.7 Status: Acute (5) Nausea & vomiting ICD Code: R11.2 Status: Acute (6) Sepsis ICD Code: A41.9 Status: Acute Assessment and Plan Sepsis - Lactic acid 2.4 - WBC 14.9 and tachycardia on admission - WBC spiked to 41.8K 09/01/16 - Normal saline at 100 cc per hour - Cefepime 2 g IV every 8 hours . DC cefepime and start levaquin - Discussed with Kori BELL/ Dr Gudino from hem/onc service. DC losartan and lactobacillus as may cause rash. Patient tachycardic and also with elevated BP will start metoprolol 12.5 bid. Also Change antibiotic to levaquin IV as patient with marked leukocytosis (note patient had neulasta 1 week prior) Patient also has a PORT that is not working well. - Will consult ID specialist as well. UTI Neutropenic Fever - Empiric antibiotic treatment with levaquin - Urine culture pending; adjust medications as indicated - Consult oncology - patient follows with Dr. Calix for breast cancer Hives - Benadryl 25 mg IV q4h PRN pruritus - Add prednisone 40 mg po daily - Add topical antipruritics Diarrhea, n/v - likely secondary to chemotherapy - check for c. diff given recent treatment with ciprofloxacin in July 2016 DVT prophylaxis - lovenox 40 mg subq daily Discussed Condition With patient, patient's , nurse, hem/onc service Problem Qualifiers (1) Sepsis: Qualified Code: A41.9 - Sepsis, due to unspecified organism Ade Oviedo MD Sep 01, 2016 11:08
--- NOTE | 2016-09-01 11:11 | PD.ONC.PN ---
Subjective Subjective Remarks Afebrile overnight. Patient states she continues to have itching welts. She ddenies cough or urinary pain. No difficulty breathing. Objective Data Date Time Temp Pulse Resp B/P Pulse Ox O2 Delivery O2 Flow Rate FiO2 09/01/16 08:00 97.4 91 19 156/72 100 09/01/16 04:00 97.6 95 20 143/88 97 09/01/16 00:00 97.8 86 20 135/76 97 08/31/16 20:27 98 08/31/16 20:00 97.7 97 20 116/61 96 08/31/16 15:49 99.1 99 18 127/61 93 08/31/16 12:00 100.3 106 18 122/60 96 09/01/16 09/01/16 09/01/16 07:00 15:00 23:00 Intake Total 0 ml 120 ml Output Total 275 ml Balance -275 ml 120 ml Result Diagram: 09/01/16 0620 09/01/16 0620 Laboratory Results Laboratory Tests Test 09/01/16 06:20 White Blood Count 41.8 TH/MM3 Red Blood Count 3.72 MIL/MM3 Hemoglobin 11.4 GM/DL Hematocrit 34.8 % Mean Corpuscular Volume 93.5 FL Mean Corpuscular Hemoglobin 30.5 PG Mean Corpuscular Hemoglobin 32.6 % Concent Red Cell Distribution Width 16.6 % Platelet Count 168 TH/MM3 Mean Platelet Volume 8.8 FL Neutrophils (%) (Auto) 95.4 % Lymphocytes (%) (Auto) 2.2 % Monocytes (%) (Auto) 2.1 % Eosinophils (%) (Auto) 0.0 % Basophils (%) (Auto) 0.3 % Neutrophils # (Auto) 39.9 TH/MM3 Lymphocytes # (Auto) 0.9 TH/MM3 Monocytes # (Auto) 0.9 TH/MM3 Eosinophils # (Auto) 0.0 TH/MM3 Basophils # (Auto) 0.1 TH/MM3 CBC Comment AUTO DIFF Differential Total Cells 100 Counted Neutrophils % (Manual) 32 % Band Neutrophils % 45 % Lymphocytes % 2 % Monocytes % 5 % Neutrophils # (Manual) 38.9 TH/MM3 Metamyelocytes 9 % Myelocytes 3 % Promyelocytes 4 % Differential Comment FINAL DIFF MANUAL Toxic Granulation 3+ Dohle Bodies PRESENT Platelet Estimate NORMAL Platelet Morphology Comment NORMAL Red Cell Morphology Comment NORMAL Sodium Level 144 MEQ/L Potassium Level 2.9 MEQ/L Chloride Level 109 MEQ/L Carbon Dioxide Level 25.2 MEQ/L Anion Gap 10 MEQ/L Blood Urea Nitrogen 11 MG/DL Creatinine 0.70 MG/DL Estimat Glomerular Filtration 84 ML/MIN Rate Random Glucose 107 MG/DL Calcium Level 8.4 MG/DL Culture Results Microbiology Date/Time Procedure Status Source Growth 08/30/16 23:10 Urine Culture - Preliminary Resulted Urine Clean Catch Group D Enterococcus 09/01/16 10:35 Aerobic Blood Culture Received Blood Peripheral Pending 09/01/16 10:35 Anaerobic Blood Culture Received Blood Peripheral Pending Administered Medications Medications (Trade) Dose Ordered Sig/Yuniel Route PRN Reason Start Time Stop Time Status Last Admin Dose Admin Sodium Chloride (NS 1000 ml Inj) 1,000 ml @ 100 mls/hr Q10H IV 08/31/16 02:00 09/01/16 08:00 IV Flush (NS Flush) 2 ml BID FLUSH 08/31/16 09:00 08/31/16 09:04 Ondansetron HCl (Zofran Inj) 4 mg Q6H PRN IVP NAUSEA OR VOMITING 08/31/16 02:00 09/01/16 08:37 Lactobacillus Acidophilus (Lactinex) 1 tab Q12HR PO 08/31/16 09:00 Hold 09/01/16 08:36 Losartan Potassium (Cozaar) 50 mg DAILY PO 08/31/16 09:00 Hold 09/01/16 08:35 Famotidine (Pepcid) 20 mg HS PO 08/31/16 21:00 08/31/16 20:18 Diphenhydramine HCl (Benadryl Inj) 25 mg Q4H PRN IV PUSH pruritis 08/31/16 05:30 09/01/16 08:36 Prednisone (Deltasone) 40 mg DAILY PO 09/01/16 09:00 09/01/16 08:35 Cetirizine HCl (ZyrTEC) 10 mg DAILY PO 09/01/16 09:00 09/01/16 08:36 Objective Remarks GENERAL: Chronically ill appearing female, sitting up in bed, appears uncomfortable, itching rash. Has an urticarial rash, systemically. SKIN: Warm and dry. erythematous edematous rash consistent with urticaria. HEAD: Normocephalic. EYES: No injection or drainage. NECK: Supple, trachea midline. CARDIOVASCULAR: Regular rate and rhythm RESPIRATORY: Breath sounds equal bilaterally. No accessory muscle use. GASTROINTESTINAL: Abdomen soft, non-tender, nondistended. EXTREMITIES: No cyanosis MUSCULOSKELETAL: Adequate muscle tone. NEUROLOGICAL: No obvious focal deficit. Awake, alert, and oriented x3. Assessment/Plan Assessment 66y/o with Stage T1B, N0M0 ER+, HER2/radha neg breast cancer. S/p final cycle of chemotherapy with Cytoxan and Taxotere on 08/22/16. She developed an urticarial rash on 08/30/16 as well as a fever on 08/31/16. Continues to have worsening hives. Plan 1. Blood cultures x 2. stop Cefepime w/ PCN allergy, start Levaquin 2. continue steroids + Benadryl 3. stop Lactobacillus + Losartan, as these may also have caused hives reaction. 4. monitor CBC d/w Dr. Gudino, Dr. Oviedo, patient and patient's . Alise Arriaza Sep 01, 2016 11:10
[2016-09-01] MEDS ORDERED: PILL SPLITTER OTHER PRN (11:15)
[2016-09-01] MEDS ORDERED: POTASSIUM CHLORIDE 10 MEQ CONTROLLED RELEASE TAB PO ONE (12:00)
[2016-09-01] MEDS: LEVOFLOXACIN 750 MG PREMIX INJ 150 ML IV SCH (12:26)
[2016-09-01 12:45] LABS: LACTIC ACID GHOST NOT REPORTABLE
[2016-09-01] MEDS: METOPROLOL TARTRATE 25 MG TAB PO SCH ×3 (13:06→20:25)
[2016-09-01] MEDS ORDERED: LIDOCAINE-PRILOCAIN 2.5% CREAM 5 GM TUBE TOPICAL PRN (14:30)
[2016-09-01] MEDS ORDERED: TRIAMCINOLONE ACETONIDE 0.1% CREAM 15 GM TOPICAL PRN (14:30)
[2016-09-01] MEDS ORDERED: diphenhydrAMINE HCL 2%/ZINC ACETATE 0.1% CREAM 30 APPLIC/30 GM TUBE TOPICAL PRN (14:30)
[2016-09-01] MEDS ORDERED: SENNOSIDES 8.6 MG TAB PO PRN (14:30)
--- NOTE | 2016-09-01 15:51 | PD.ID.CON ---
History of Present Illness Service ID Consult Requested By Dr Oviedo Reason for Consult sepsis Primary Care Physician Jaydon Diaz MD Diagnoses: History of Present Illness Mrs. Cheung is a 66-year-old patient with a history of breast cancer on chemotherapy (followed by Dr. Calix) presented to the emergency room on with complaint of fever and hives. WBC elevated at 14.9, urinalysis suggestive of infection with culture pending. UA abnormal with pyurian and culture growing Enterococcus; she denies however any urinary symptoms but states she had them last month when she was diagnosed with UTI The patient is seen in the ER where she reports that she developed severe, diffuse, pruritic hives all over her body yesterday- last chemotherapy was given August 22. She c/o having diarrhea, nausea, and vomiting Sp Ciprofloxacin for UTI in July. .She receieved a dose of cefepime in ER and now started on Levaquine Today her WBC went up to 41 K and bandemisa to 45% SHe is on high dose sterroids she has a fever of 100.2 max today SHe feels better today, her nausea, vomiting and abdominal pain resolved SHe thinks her rash and pruritis got worse and Review of Systems Constitutional: COMPLAINS OF: Fever, Chills Gastrointestinal: COMPLAINS OF: Abdominal pain, Constipation, Nausea, Vomiting Genitourinary: COMPLAINS OF: Sexual dysfunction, DENIES: Urinary frequency, Urgency, Hematuria, Dysuria, Nocturia Integumentary: COMPLAINS OF: Pruritus, Rash Immunologic/allergic: COMPLAINS OF: Urticaria Other as above the rest of 12 point review is negative Past Family Social History Allergies: Coded Allergies: Losartan (Verified Allergy, Severe, Hives, 09/05/16) angioedema, rash/hives Penicillin (Verified Allergy, Severe, Hives, 06/27/16) Past Medical History Basal and squamous cell cancers no melanomas. Gastroparesis Hypertension (more then 10 years.) Osteopenia Rosacea Diverticulosis GERD Endometriosis . Past Surgical History Right lumpectomy and sentinel node bx in 2015 - 04/30/2016 right lumpectomy and right axillary sentinel node Needle bx of right breast in 2015 - Plastic surgery in 2012 - face lift Cholecystectomy in 2008 - 02/08/2009 Appendectomy and partial right colectomy including cecum in 1992 - ruptured appendix with peritonitis. Removal of remaining ovary and endometriosis- Abdominal hysterectomy and single oophorectomy in 1984 Active Ordered Medications Medications where reviewed in EMR Antibiotics Include: Levaquine Family History breast CA, CVA, dementia Social History No Tobacco. social ETOH. No Illicit Drugs. Physical Exam Vital Signs Vital Signs Date Time Temp Pulse Resp B/P Pulse Ox O2 Delivery O2 Flow Rate FiO2 09/01/16 12:00 100.2 102 18 119/60 98 09/01/16 08:00 97.4 91 19 156/72 100 09/01/16 04:00 97.6 95 20 143/88 97 09/01/16 00:00 97.8 86 20 135/76 97 08/31/16 20:27 98 08/31/16 20:00 97.7 97 20 116/61 96 08/31/16 15:49 99.1 99 18 127/61 93 Physical Exam CONSTITUTIONAL/GENERAL: This is an oebse elderly female patient, in no apparent distress. TUBES/LINES/DRAINS: PORT in place L chest - looks OK , but stopped drawing today SKIN: Extensive hives/urticara lare with ild elevation, very pruritic, pt is constantly scratching Skin temperature appropriate. Not diaphoretic. BREAST: well healed scar on the R brest HEAD: Atraumatic. Normocephalic. EYES: Pupils equal and round and reactive. Extraocular motions intact. No scleral icterus. No injection or drainage. Fundi not examined. ENT: Hearing grossly normal. Nose without bleeding or purulent drainage. Oral mucosae without visible erythema, exudates, masses, or lesions. NECK: Trachea midline. Supple, nontender. No palpable thyroid enlargement or nodularity. CARDIOVASCULAR: Regular rate and rhythm without murmurs, gallops, or rubs. No JVD. Peripheral pulses symmetric. RESPIRATORY/CHEST: Symmetric, unlabored respirations. Clear to auscultation. Breath sounds equal bilaterally. No wheezes, rales, or rhonchi. GASTROINTESTINAL: Abdomen soft, non-tender, nondistended. No hepato-splenomegaly , or palpable masses. No guarding. Bowel sounds present. GENITOURINARY: Without palpable bladder distension. MUSCULOSKELETAL: Extremities without clubbing, cyanosis, or edema. No joint tenderness or effusion noted. No calf tenderness. No mottling or clubbing. LYMPHATICS: No palpable cervical axillae or supraclavicular adenopathy. NEUROLOGICAL: Awake and alert. Motor and sensory grossly within normal limits. Follows commands. Cognitively sharp. Normal speech. Moves all extremities. PSYCHIATRIC: No obvious anxiety/depression. no apparent hallucinations or other psychotic thought process. Laboratory Laboratory Tests Test 09/01/16 09/01/16 09/01/16 06:20 10:35 13:41 White Blood Count 41.8 Red Blood Count 3.72 Hemoglobin 11.4 Hematocrit 34.8 Mean Corpuscular Volume 93.5 Mean Corpuscular Hemoglobin 30.5 Mean Corpuscular Hemoglobin 32.6 Concent Red Cell Distribution Width 16.6 Platelet Count 168 Mean Platelet Volume 8.8 Neutrophils (%) (Auto) 95.4 Lymphocytes (%) (Auto) 2.2 Monocytes (%) (Auto) 2.1 Eosinophils (%) (Auto) 0.0 Basophils (%) (Auto) 0.3 Neutrophils # (Auto) 39.9 Lymphocytes # (Auto) 0.9 Monocytes # (Auto) 0.9 Eosinophils # (Auto) 0.0 Basophils # (Auto) 0.1 CBC Comment AUTO DIFF Differential Total Cells 100 Counted Neutrophils % (Manual) 32 Band Neutrophils % 45 Lymphocytes % 2 Monocytes % 5 Neutrophils # (Manual) 38.9 Metamyelocytes 9 Myelocytes 3 Promyelocytes 4 Differential Comment FINAL DIFF MANUAL Toxic Granulation 3+ Dohle Bodies PRESENT Platelet Estimate NORMAL Platelet Morphology Comment NORMAL Red Cell Morphology Comment NORMAL Sodium Level 144 Potassium Level 2.9 Chloride Level 109 Carbon Dioxide Level 25.2 Anion Gap 10 Blood Urea Nitrogen 11 Creatinine 0.70 Estimat Glomerular Filtration 84 Rate Random Glucose 107 Calcium Level 8.4 Lactate Dehydrogenase 466 Lactic Acid Level 4.0 1.8 Date/Time Procedure Status Source Growth 09/01/16 10:35 Aerobic Blood Culture Received Blood Peripheral Pending 09/01/16 10:35 Anaerobic Blood Culture Received Blood Peripheral Pending 08/30/16 23:10 Urine Culture - Preliminary Resulted Urine Clean Catch Group D Enterococcus Result Diagram: 09/01/16 0620 09/01/16 0620 Imaging Last Impressions Chest X-Ray 08/30/16 0000 Signed Impressions: Service Date/Time: August 22:33 - CONCLUSION: No acute disease. Harry Orozco MD FACR Assessment and Plan Assessment and Plan Breast Cancer, sp chemo sp Neulast Leukocytosis, leukemoid reaction with extreme bandemia and very young forms preset ? medx effect - ? infx -? Neulast - ?sterroids - ? combined Hives - leikely allergic reaction to med Fever - ? allergic reaction vs UTI ENterococcal UTI vs asymptomatic bacteriuria (pt denied having any urinary smx this time) - cont levaquine - fu blood and urine clx fu clinically chk stool for C.diff if diarrhea Discussed Condition With Alaina Woodruff MD Sep 01, 2016 15:51
[2016-09-01] MEDS ORDERED: Infusaport/Implanted VAD PRN NS Lock Flush IVF (20:00)
[2016-09-01] MEDS: FAMOTIDINE 20 MG TAB PO SCH (20:25)
[2016-09-02] VITALS (7 sets, daily range): BP systolic 97–114; BP diastolic 49–58; PULSE 84–104; RESP 18–20; TEMP 97.3–99; O2SAT 96–98
[2016-09-02] MEDS: diphenhydrAMINE HCL 50 MG/ML VIAL IV PUSH PRN ×6 (01:33→21:55)
[2016-09-02] MEDS: SODIUM CHLOR 0.9% 1000 ML INJ 1,000 ML IV SCH ×3 (01:33→21:57)
[2016-09-02 06:14] LABS: BASOPHIL # 0.1 TH/MM3 (0-0.2); BASOPHIL % 0.1 % (0.0-2.0); EOSINOPHIL % 0.1 % (0.0-4.0); HEMATOCRIT 31.6 % (35.0-46.0); LYMPH % 3.8 % (9.0-44.0); LYMPHOCYTE # 1.6 TH/MM3 (1.0-4.8); MEAN CELL VOLUME 92.5 FL (80.0-100.0); MEAN CORPUSCULAR HEMOGLOBIN 31.4 PG (27.0-34.0); MONO % 0.8 % (0.0-8.0); NEUT % 95.2 % (16.0-70.0); PLATELET COUNT 185 TH/MM3 (150-450); RED BLOOD COUNT 3.41 MIL/MM3 (4.00-5.30); RED CELL DISTRIBUTION WIDTH 16.8 % (11.6-17.2); WHITE BLOOD COUNT 42.1 TH/MM3 (4.0-11.0)
[2016-09-02 06:18] LABS: HEMO FLAGS AUTO DIFF
[2016-09-02 06:39] LABS: BICARBONATE 24.8 MEQ/L (21.0-32.0); MAGNESIUM 1.8 MG/DL (1.5-2.5); POTASSIUM 3.5 MEQ/L (3.5-5.1)
[2016-09-02] MEDS: METOPROLOL TARTRATE 25 MG TAB PO SCH ×2 (08:52→21:00)
[2016-09-02] MEDS: ENOXAPARIN SODIUM 40 MG/0.4 ML SYRINGE SQ SCH (08:52)
[2016-09-02] MEDS: predniSONE 20 MG TAB PO SCH (08:52)
[2016-09-02] MEDS: CETIRIZINE HCL 10 MG TAB PO SCH (08:52)
[2016-09-02] MEDS: SODIUM CHLORIDE 0.9% FLUSH 5 ML FLUSH FLUSH SCH ×2 (08:53→21:00)
--- NOTE | 2016-09-02 10:12 | HHI.PR ---
Subjective Remarks Still with persistent rash, erythematous, blanching, pruritic, very warm. She also has now swelling of her lips, without swelling of her toungue and no respiratory compromise. Her BP is into a lower side as well. No fever or chills. No chest pain. Objective Vitals Vital Signs Date Time Temp Pulse Resp B/P Pulse Ox O2 Delivery O2 Flow Rate FiO2 09/02/16 08:00 99.0 100 18 99/58 96 09/02/16 04:00 98.8 102 20 97/52 97 09/02/16 00:00 98.9 95 20 111/53 97 09/01/16 20:00 97.8 95 20 101/55 96 09/01/16 19:16 98 09/01/16 16:00 98.7 100 17 100/51 95 09/01/16 12:00 100.2 102 18 119/60 98 I/O 09/01/16 09/01/16 09/01/16 09/02/16 09/02/16 09/02/16 07:00 15:00 23:00 07:00 15:00 23:00 Intake Total 0 ml 2831 ml 720 ml 923 ml 120 ml Output Total 275 ml 400 ml 300 ml Balance -275 ml 2831 ml 320 ml 623 ml 120 ml Intake Oral 0 ml 1080 ml 720 ml 120 ml 120 ml IV Total 1751 ml 803 ml Output Urine Total 250 ml 400 ml 300 ml Emesis 25 ml Result Diagram: 09/02/16 0600 09/02/16 0600 Imaging Last Impressions Chest X-Ray 08/30/16 0000 Signed Impressions: Service Date/Time: August 22:33 - CONCLUSION: No acute disease. Harry Orozco MD FACR Objective Remarks GENERAL: This is a well-nourished, well-developed patient, in no apparent distress. SKIN: Diffuse hives on legs, arms, head, chest. Alopecia. Hives on head are improving. No ecchymoses or lesions. Cool and dry. HEAD: Atraumatic. Normocephalic. EYES: No scleral icterus. No injection or drainage. ENT: Nose without bleeding, purulent drainage. NECK: Trachea midline. No JVD or lymphadenopathy. CARDIOVASCULAR: Regular rate and rhythm without murmurs, gallops, or rubs. RESPIRATORY: Clear to auscultation. Breath sounds equal bilaterally. No wheezes , rales, or rhonchi. GASTROINTESTINAL: Abdomen soft, non-tender, nondistended. No guarding. MUSCULOSKELETAL: Extremities without clubbing, cyanosis, or edema. No calf tenderness. NEUROLOGICAL: Awake and alert. Motor and sensory grossly within normal limits. Normal speech. A/P Problem List: (1) Hives ICD Code: L50.9 Status: Acute (2) Neutropenic fever ICD Code: D70.9 Status: Acute (3) Urinary tract infection ICD Code: N39.0 Status: Acute (4) Diarrhea ICD Code: R19.7 Status: Acute (5) Nausea & vomiting ICD Code: R11.2 Status: Acute (6) Sepsis ICD Code: A41.9 Status: Acute Assessment and Plan Sepsis - Lactic acid 2.4 on admission , elevated again on 09/01 T 4 with repeat 1.8 - WBC 14.9 and tachycardia on admission - WBC spiked to 41.8K 09/01/16 and stays elevated - Normal saline at 100 cc per hour - Cefepime 2 g IV every 8 hours . DC cefepime and started levaquin 09/01/15 - Discussed with Kori BELL/ Dr Gudino from hem/onc service. DC losartan and lactobacillus as may cause rash. Patient tachycardic and also with elevated BP will start metoprolol 12.5 bid. Also Change antibiotic to levaquin IV as patient with marked leukocytosis (note patient had neulasta 1 week prior) Patient also has a PORT that is not working well. - Consult ID specialist, appreciate recommendations UTI Neutropenic Fever - Empiric antibiotic treatment with levaquin - Urine culture pending; adjust medications as indicated - Consult oncology - patient follows with Dr. Calix for breast cancer Hives - Benadryl 25 mg IV q4h PRN pruritus - Add prednisone 40 mg po daily - Add topical antipruritics 09/02 Severe allergic reaction with rash on the trunk and LE, now with low BP and swelling of her lips angioedema like. Monitor VS closely . Give epinephrine 0.3 IM once . If low BP and respiratory compromise will transfer to ICU. Hold metoprolol if SBP< 120 and HR<65 DC losartan and lactobacillus as may cause rash 09/01 (last taken) DC cefepime and start levaquin IV 09/01 Patient has a h/o gastroparesis and takes bethanecol 12.5 mg po before meals at night. Will restart Diarrhea, n/v - likely secondary to chemotherapy. - check for c. diff given recent treatment with ciprofloxacin in July 2016. Pending as patient did not have diarrhea anymore DVT prophylaxis - lovenox 40 mg subq daily Discussed Condition With patient, patient's , nurse, hem/onc service Problem Qualifiers (1) Sepsis: Qualified Code: A41.9 - Sepsis, due to unspecified organism Ade Oviedo MD Sep 02, 2016 10:12
[2016-09-02 10:49] LABS: BANDS 37 % (0-6); METAMYELOCYTES 1 % (0-1); MYELOCYTES 4 % (0-0); PLATELET ESTIMATE SMEAR NORMAL (NORMAL); PLATELET MORPHOLOGY NORMAL (NORMAL); POLYS (SEG NEUTROPHILS) 44 % (16-70); PROMYELOCYTES 2 % (0-0); TOXIC GRANULATION 2+ (NORMAL); WBC DIFF SAMPLE 100
[2016-09-02 10:50] LABS: SCAN/DIFF FINAL DIFF MANUAL
[2016-09-02] MEDS ORDERED: EPINEPHrine HCL (1:10,000) 1 MG/10 ML SYRINGE IM ONE (11:00)
--- NOTE | 2016-09-02 11:46 | PD.ONC.PN ---
Subjective Subjective Remarks Afebrile overnight. Late entry, patient seen at 8AM this morning. She reports no improvement in symptoms since yesterday. She still has hives and itching. her lips have started to swell, although she has not had any swelling of her tongue or wheezing or difficulty breathing. No other new symptoms. Objective Data Date Time Temp Pulse Resp B/P Pulse Ox O2 Delivery O2 Flow Rate FiO2 09/02/16 08:00 99.0 100 18 99/58 96 09/02/16 04:00 98.8 102 20 97/52 97 09/02/16 00:00 98.9 95 20 111/53 97 09/01/16 20:00 97.8 95 20 101/55 96 09/01/16 19:16 98 09/01/16 16:00 98.7 100 17 100/51 95 09/01/16 12:00 100.2 102 18 119/60 98 09/02/16 09/02/16 09/02/16 07:00 15:00 23:00 Intake Total 923 ml 120 ml Output Total 300 ml Balance 623 ml 120 ml Result Diagram: 09/02/16 0600 09/02/16 0600 Laboratory Results Laboratory Tests Test 09/01/16 09/02/16 13:41 06:00 Lactic Acid Level 1.8 mmol/L White Blood Count 42.1 TH/MM3 Red Blood Count 3.41 MIL/MM3 Hemoglobin 10.7 GM/DL Hematocrit 31.6 % Mean Corpuscular Volume 92.5 FL Mean Corpuscular Hemoglobin 31.4 PG Mean Corpuscular Hemoglobin 34.0 % Concent Red Cell Distribution Width 16.8 % Platelet Count 185 TH/MM3 Mean Platelet Volume 8.2 FL Neutrophils (%) (Auto) 95.2 % Lymphocytes (%) (Auto) 3.8 % Monocytes (%) (Auto) 0.8 % Eosinophils (%) (Auto) 0.1 % Basophils (%) (Auto) 0.1 % Neutrophils # (Auto) 40.0 TH/MM3 Lymphocytes # (Auto) 1.6 TH/MM3 Monocytes # (Auto) 0.4 TH/MM3 Eosinophils # (Auto) 0.0 TH/MM3 Basophils # (Auto) 0.1 TH/MM3 CBC Comment AUTO DIFF Differential Total Cells 100 Counted Neutrophils % (Manual) 44 % Band Neutrophils % 37 % Lymphocytes % 7 % Monocytes % 5 % Neutrophils # (Manual) 37.0 TH/MM3 Metamyelocytes 1 % Myelocytes 4 % Promyelocytes 2 % Differential Comment FINAL DIFF MANUAL Toxic Granulation 2+ Platelet Estimate NORMAL Platelet Morphology Comment NORMAL Sodium Level 141 MEQ/L Potassium Level 3.5 MEQ/L Chloride Level 107 MEQ/L Carbon Dioxide Level 24.8 MEQ/L Anion Gap 9 MEQ/L Blood Urea Nitrogen 12 MG/DL Creatinine 0.79 MG/DL Estimat Glomerular Filtration 73 ML/MIN Rate Random Glucose 98 MG/DL Calcium Level 7.8 MG/DL Magnesium Level 1.8 MG/DL Culture Results Microbiology Date/Time Procedure Status Source Growth 08/30/16 23:10 Urine Culture - Preliminary Resulted Urine Clean Catch Group D Enterococcus 09/01/16 10:35 Aerobic Blood Culture - Preliminary Resulted Blood Peripheral NO GROWTH IN 1 DAY 09/01/16 10:35 Anaerobic Blood Culture - Preliminary Resulted Blood Peripheral NO GROWTH IN 1 DAY 09/01/16 21:39 Aerobic Blood Culture - Preliminary Resulted Blood Line NO GROWTH IN 1 DAY 09/01/16 21:39 Anaerobic Blood Culture - Preliminary Resulted Blood Line NO GROWTH IN 1 DAY Administered Medications Medications (Trade) Dose Ordered Sig/Yuniel Route PRN Reason Start Time Stop Time Status Last Admin Dose Admin Sodium Chloride (NS 1000 ml Inj) 1,000 ml @ 100 mls/hr Q10H IV 08/31/16 02:00 09/02/16 01:33 IV Flush (NS Flush) 2 ml BID FLUSH 08/31/16 09:00 09/01/16 21:47 Ondansetron HCl (Zofran Inj) 4 mg Q6H PRN IVP NAUSEA OR VOMITING 08/31/16 02:00 09/01/16 08:37 Enoxaparin Sodium (Lovenox Inj) 40 mg Q24H SQ 08/31/16 09:00 09/02/16 08:52 Losartan Potassium (Cozaar) 50 mg DAILY PO 08/31/16 09:00 Hold 09/01/16 08:35 Famotidine (Pepcid) 20 mg HS PO 08/31/16 21:00 09/01/16 20:25 Diphenhydramine HCl (Benadryl Inj) 25 mg Q4H PRN IV PUSH pruritis 08/31/16 05:30 09/02/16 10:06 Prednisone (Deltasone) 40 mg DAILY PO 09/01/16 09:00 09/02/16 08:52 Cetirizine HCl 10 mg 10 mg DAILY PO 09/01/16 09:00 09/02/16 08:52 Levofloxacin/ Dextrose (Levaquin 750 Mg Premix Inj) 150 ml @ 100 mls/hr Q24H IV 09/01/16 13:00 09/01/16 12:26 Metoprolol Tartrate (Lopressor) 12.5 mg Q12HR PO 09/01/16 11:15 09/01/16 20:25 Sennosides (Senokot) 8.6 mg HS PRN PO CONSTIPATION 09/01/16 14:30 09/01/16 21:45 Heparin Sodium (Porcine) (Heparin Central Flush) 250 units UNSCH PRN IVF SEE PROTOCOL TABLE 09/01/16 20:00 09/01/16 20:26 Objective Remarks GENERAL: Middle aged female, sitting up in bed, scratching at rash. lips mildly swollen. SKIN: Warm and dry. hives rash on trunk and extremities. + alopecia. HEAD: Normocephalic. EYES: No injection or drainage. NECK: Supple, trachea midline. CARDIOVASCULAR: Regular rate and rhythm RESPIRATORY: Breath sounds equal bilaterally. No accessory muscle use. GASTROINTESTINAL: Abdomen soft, non-tender, nondistended. EXTREMITIES: No cyanosis MUSCULOSKELETAL: Adequate muscle tone. NEUROLOGICAL: No obvious focal deficit. Awake, alert, and oriented x3. Assessment/Plan Assessment 66y/o with Stage T1B, N0M0 ER+, HER2/radha neg breast cancer. S/p final cycle of chemotherapy with Cytoxan and Taxotere on 08/22/16. She developed an urticarial rash on 08/30/16 as well as a fever on 08/31/16. Continues to have worsening hives. Plan 1. Blood cultures x 2 show no growth. continue Levaquin. 2. continue steroids + Benadryl + Pepcid. 3. monitor closely for airway issues. 4. monitor CBC d/w Dr. Gudino, Dr. Oviedo, Dr. Calix. Alise Arriaza Sep 02, 2016 11:46
[2016-09-02] MEDS: LEVOFLOXACIN 750 MG PREMIX INJ 150 ML IV SCH (12:06)
[2016-09-02] MEDS: FAMOTIDINE 20 MG TAB PO SCH (21:55)
[2016-09-03] VITALS: BP 114/60; PULSE 93; RESP 20; TEMP 97.5; O2SAT 96
[2016-09-03] MEDS: diphenhydrAMINE HCL 50 MG/ML VIAL IV PUSH PRN ×6 (02:10→22:22)
[2016-09-03 04:00] VITALS: BP 108/57; PULSE 81; RESP 20; TEMP 97.5; O2SAT 94
[2016-09-03 07:49] LABS: AUTOMATED NEUTROPHIL # 29.8 TH/MM3 (1.8-7.7); BASOPHIL # 0.1 TH/MM3 (0-0.2); BASOPHIL % 0.4 % (0.0-2.0); EOSINOPHIL # 0.1 TH/MM3 (0-0.4); EOSINOPHIL % 0.3 % (0.0-4.0); HEMATOCRIT 26.7 % (35.0-46.0); LYMPH % 5.2 % (9.0-44.0); LYMPHOCYTE # 1.7 TH/MM3 (1.0-4.8); MEAN CELL VOLUME 92.5 FL (80.0-100.0); MEAN CORPUSCULAR HEMOGLOBIN 31.1 PG (27.0-34.0); MEAN CORPUSCULAR HGB CONC 33.7 % (32.0-36.0); MONO % 2.2 % (0.0-8.0); NEUT % 91.9 % (16.0-70.0); PLATELET COUNT 187 TH/MM3 (150-450); RED BLOOD COUNT 2.88 MIL/MM3 (4.00-5.30); RED CELL DISTRIBUTION WIDTH 16.8 % (11.6-17.2); WHITE BLOOD COUNT 32.4 TH/MM3 (4.0-11.0)
[2016-09-03 08:00] VITALS: BP 103/51; PULSE 73; RESP 17; TEMP 97.7; O2SAT 96
[2016-09-03 08:10] LABS: HEMO FLAGS AUTO DIFF
[2016-09-03] MEDS: METOPROLOL TARTRATE 25 MG TAB PO SCH ×2 (08:34→20:37)
[2016-09-03] MEDS: SODIUM CHLORIDE 0.9% FLUSH 5 ML FLUSH FLUSH SCH ×2 (08:34→20:37)
[2016-09-03] MEDS: CETIRIZINE HCL 10 MG TAB PO SCH (08:38)
[2016-09-03] MEDS: predniSONE 20 MG TAB PO SCH (08:38)
[2016-09-03] MEDS: ENOXAPARIN SODIUM 40 MG/0.4 ML SYRINGE SQ SCH (08:41)
[2016-09-03] MEDS: SODIUM CHLOR 0.9% 1000 ML INJ 1,000 ML IV SCH ×2 (08:41→20:38)
[2016-09-03 09:13] LABS: BANDS 26 % (0-6); CORRECTED NUCLEATED RBC 2 /100 WBC (0-0); EOSINOPHILS 1 % (0-4); METAMYELOCYTES 1 % (0-1); MYELOCYTES 14 % (0-0); NEUTROPHIL # MANUAL DIFF 28.8 TH/MM3 (1.8-7.7); POLYS (SEG NEUTROPHILS) 48 % (16-70); TOXIC GRANULATION 2+ (NORMAL); WBC DIFF SAMPLE 100
[2016-09-03 09:14] LABS: OVALOCYTES 1+ (NORMAL); PLATELET ESTIMATE SMEAR NORMAL (NORMAL); PLATELET MORPHOLOGY NORMAL (NORMAL); SCAN/DIFF FINAL DIFF MANUAL
--- NOTE | 2016-09-03 11:18 | HHI.PR ---
Subjective Remarks Rash improved on the LE. Lips are back to normal, no swelling. No n/v/d/c. Objective Vitals Vital Signs Date Time Temp Pulse Resp B/P Pulse Ox O2 Delivery O2 Flow Rate FiO2 09/03/16 08:00 97.7 73 17 103/51 96 09/03/16 04:00 97.5 81 20 108/57 94 09/03/16 00:00 97.5 93 20 114/60 96 09/02/16 20:00 97.3 84 20 110/49 96 09/02/16 19:13 90 09/02/16 16:00 98.4 96 20 114/56 97 09/02/16 11:51 98.3 104 20 106/55 98 I/O 09/02/16 09/02/16 09/02/16 09/03/16 09/03/16 09/03/16 07:00 15:00 23:00 07:00 15:00 23:00 Intake Total 923 ml 2022 ml 1108 ml 500 ml Output Total 300 ml 600 ml 400 ml 300 ml Balance 623 ml 1422 ml 708 ml 200 ml Intake Oral 120 ml 740 ml 720 ml 0 ml IV Total 803 ml 1282 ml 388 ml 500 ml Output Urine Total 300 ml 600 ml 400 ml 300 ml # Bowel Movements 1 Result Diagram: 09/03/16 0720 09/02/16 0600 Imaging Last Impressions Chest X-Ray 08/30/16 0000 Signed Impressions: Service Date/Time: August 22:33 - CONCLUSION: No acute disease. Harry Orozco MD FACR Objective Remarks GENERAL: This is a well-nourished, well-developed patient, in no apparent distress. SKIN: Diffuse hives on legs, arms, head, chest. Alopecia. Hives on head are improving. No ecchymoses or lesions. Cool and dry. HEAD: Atraumatic. Normocephalic. EYES: No scleral icterus. No injection or drainage. ENT: Nose without bleeding, purulent drainage. NECK: Trachea midline. No JVD or lymphadenopathy. CARDIOVASCULAR: Regular rate and rhythm without murmurs, gallops, or rubs. RESPIRATORY: Clear to auscultation. Breath sounds equal bilaterally. No wheezes , rales, or rhonchi. GASTROINTESTINAL: Abdomen soft, non-tender, nondistended. No guarding. MUSCULOSKELETAL: Extremities without clubbing, cyanosis, or edema. No calf tenderness. NEUROLOGICAL: Awake and alert. Motor and sensory grossly within normal limits. Normal speech. A/P Problem List: (1) Hives ICD Code: L50.9 Status: Acute (2) Neutropenic fever ICD Code: D70.9 Status: Acute (3) Urinary tract infection ICD Code: N39.0 Status: Acute (4) Diarrhea ICD Code: R19.7 Status: Acute (5) Nausea & vomiting ICD Code: R11.2 Status: Acute (6) Sepsis ICD Code: A41.9 Status: Acute Assessment and Plan Sepsis - Lactic acid 2.4 on admission , elevated again on 09/01 T 4 with repeat 1.8 - WBC 14.9 and tachycardia on admission - WBC spiked to 41.8K 09/01/16 and stays elevated - Normal saline at 100 cc per hour - Cefepime 2 g IV every 8 hours . DC cefepime and started levaquin 09/01/15 - Discussed with Kori BELL/ Dr Gudino from hem/onc service. DC losartan and lactobacillus as may cause rash. Patient tachycardic and also with elevated BP will start metoprolol 12.5 bid. Also Change antibiotic to levaquin IV as patient with marked leukocytosis (note patient had neulasta 1 week prior) Patient also has a PORT that is not working well. - Consult ID specialist, appreciate recommendations UTI Neutropenic Fever - Empiric antibiotic treatment with levaquin - Urine culture pending; adjust medications as indicated - Consult oncology - patient follows with Dr. Calix for breast cancer Hives - Benadryl 25 mg IV q4h PRN pruritus - Add prednisone 40 mg po daily - Add topical antipruritics 09/02 Severe allergic reaction with rash on the trunk and LE, now with low BP and swelling of her lips angioedema like. Monitor VS closely . Give epinephrine 0.3 IM once . If low BP and respiratory compromise will transfer to ICU. Hold metoprolol if SBP< 120 and HR<65 DC losartan and lactobacillus as may cause rash 09/01 (last taken) DC cefepime and start levaquin IV 09/01 Patient has a h/o gastroparesis and takes bethanecol 12.5 mg po before meals at night. Will restart Diarrhea, n/v - likely secondary to chemotherapy. - check for c. diff given recent treatment with ciprofloxacin in July 2016. Pending as patient did not have diarrhea anymore DVT prophylaxis - lovenox 40 mg subq daily Discussed Condition With patient, patient's , nurse, hem/onc service Problem Qualifiers (1) Sepsis: Qualified Code: A41.9 - Sepsis, due to unspecified organism Ade Oviedo MD Sep 03, 2016 11:18
--- NOTE | 2016-09-03 11:20 | PD.ONC.PN ---
Subjective Subjective Remarks Afebrile overnight. Patient states hives have improved somewhat since yesterday , although she still has some. No difficulty breathing. No swelling in airway. Objective Data Date Time Temp Pulse Resp B/P Pulse Ox O2 Delivery O2 Flow Rate FiO2 09/03/16 08:00 97.7 73 17 103/51 96 09/03/16 04:00 97.5 81 20 108/57 94 09/03/16 00:00 97.5 93 20 114/60 96 09/02/16 20:00 97.3 84 20 110/49 96 09/02/16 19:13 90 09/02/16 16:00 98.4 96 20 114/56 97 09/02/16 11:51 98.3 104 20 106/55 98 Result Diagram: 09/03/16 0720 09/02/16 0600 Laboratory Results Laboratory Tests Test 09/03/16 07:20 White Blood Count 32.4 TH/MM3 Red Blood Count 2.88 MIL/MM3 Hemoglobin 9.0 GM/DL Hematocrit 26.7 % Mean Corpuscular Volume 92.5 FL Mean Corpuscular Hemoglobin 31.1 PG Mean Corpuscular Hemoglobin 33.7 % Concent Red Cell Distribution Width 16.8 % Platelet Count 187 TH/MM3 Mean Platelet Volume 8.2 FL Neutrophils (%) (Auto) 91.9 % Lymphocytes (%) (Auto) 5.2 % Monocytes (%) (Auto) 2.2 % Eosinophils (%) (Auto) 0.3 % Basophils (%) (Auto) 0.4 % Neutrophils # (Auto) 29.8 TH/MM3 Lymphocytes # (Auto) 1.7 TH/MM3 Monocytes # (Auto) 0.7 TH/MM3 Eosinophils # (Auto) 0.1 TH/MM3 Basophils # (Auto) 0.1 TH/MM3 CBC Comment AUTO DIFF Differential Total Cells 100 Counted Neutrophils % (Manual) 48 % Band Neutrophils % 26 % Lymphocytes % 5 % Monocytes % 5 % Eosinophils % 1 % Neutrophils # (Manual) 28.8 TH/MM3 Metamyelocytes 1 % Myelocytes 14 % Nucleated Red Blood Cells 2 /100 WBC Differential Comment FINAL DIFF MANUAL Toxic Granulation 2+ Platelet Estimate NORMAL Platelet Morphology Comment NORMAL Ovalocytes 1+ Culture Results Microbiology Date/Time Procedure Status Source Growth 09/01/16 10:35 Aerobic Blood Culture - Preliminary Resulted Blood Peripheral NO GROWTH IN 2 DAYS 09/01/16 10:35 Anaerobic Blood Culture - Preliminary Resulted Blood Peripheral NO GROWTH IN 2 DAYS 09/01/16 21:39 Aerobic Blood Culture - Preliminary Resulted Blood Line NO GROWTH IN 2 DAYS 09/01/16 21:39 Anaerobic Blood Culture - Preliminary Resulted Blood Line NO GROWTH IN 2 DAYS Administered Medications Medications (Trade) Dose Ordered Sig/Yuniel Route PRN Reason Start Time Stop Time Status Last Admin Dose Admin Sodium Chloride (NS 1000 ml Inj) 1,000 ml @ 100 mls/hr Q10H IV 08/31/16 02:00 09/03/16 08:41 IV Flush (NS Flush) 2 ml UNSCH PRN FLUSH FLUSH AFTER USING IV ACCESS 08/31/16 02:00 09/02/16 13:52 IV Flush (NS Flush) 2 ml BID FLUSH 08/31/16 09:00 09/01/16 21:47 Ondansetron HCl (Zofran Inj) 4 mg Q6H PRN IVP NAUSEA OR VOMITING 08/31/16 02:00 09/01/16 08:37 Enoxaparin Sodium (Lovenox Inj) 40 mg Q24H SQ 08/31/16 09:00 09/03/16 08:41 Famotidine (Pepcid) 20 mg HS PO 08/31/16 21:00 09/02/16 21:55 Diphenhydramine HCl (Benadryl Inj) 25 mg Q4H PRN IV PUSH pruritis 08/31/16 05:30 09/03/16 10:14 Prednisone (Deltasone) 40 mg DAILY PO 09/01/16 09:00 09/03/16 08:38 Cetirizine HCl 10 mg 10 mg DAILY PO 09/01/16 09:00 09/03/16 08:38 Levofloxacin/ Dextrose (Levaquin 750 Mg Premix Inj) 150 ml @ 100 mls/hr Q24H IV 09/01/16 13:00 09/02/16 12:06 Metoprolol Tartrate (Lopressor) 12.5 mg Q12HR PO 09/01/16 11:15 09/01/16 20:25 Sennosides (Senokot) 8.6 mg HS PRN PO CONSTIPATION 09/01/16 14:30 09/01/16 21:45 Diphenhydramine HCl (Benadryl 2% Cream) 1 applic TID PRN TOPICAL ITCHING 09/01/16 14:30 09/03/16 08:41 Triamcinolone Acetonide (Aristocort 0.1% Cream) 1 applic Q6HR PRN TOPICAL rash 09/01/16 14:30 09/03/16 08:42 Heparin Sodium (Porcine) (Heparin Central Flush) 250 units UNSCH PRN IVF SEE PROTOCOL TABLE 09/01/16 20:00 09/03/16 06:24 Objective Remarks GENERAL: Middle aged female, sitting up in bed in nad. SKIN: Warm and dry. improving urticaria on trunk and extremities. HEAD: Normocephalic. EYES: No injection or drainage. NECK: Supple, trachea midline. CARDIOVASCULAR: Regular rate and rhythm. RESPIRATORY: Breath sounds equal bilaterally. No accessory muscle use. GASTROINTESTINAL: Abdomen soft, non-tender, nondistended. EXTREMITIES: No cyanosis MUSCULOSKELETAL: Adequate muscle tone. NEUROLOGICAL: awake and alert, normal speech. Assessment/Plan Assessment 66y/o admitted with urticarial rash + elevated WBC. Stage T1B, N0M0 ER+, HER2/radha neg breast cancer. S/p final cycle of chemotherapy with Cytoxan and Taxotere on 08/22/16. Plan 1. BC: no growth x 2 days. continue Levaquin. 2. Prednisone + benadryl and pepcid 3. expect that she will continue to improve and that the allergen is probably still being eliminated from her system. Attending Statement The exam, history, and the medical decision-making described in the above note were completed with the assistance of the mid-level provider. I reviewed and agree with the findings presented. I attest that I had a cain-vu-offr encounter with the patient on the same day, and personally performed and documented my assessment and findings in the medical record. she definitely looks better and hives/uticaria decreased. Suspect losartan was offending agent and that in some manner the chemo set in motion the immune process. It was not just confined to skin with the severe leftward shift which has not fully resolved. will check cbc plat dif, cmp and LDH in am . I am surprised to see fall in hemoglobin and want to make sure we do not have hemolysis. In meantime would continue prednisone, zyrtec and pepcid. UTII I believe is not related to current problem and should resolve. Will change to oral Cipro based on sensitivities tomorrow if blood cultures remain negative. Appreciate all the help. Alise Arriaza Sep 03, 2016 11:20 Rogelio Calix MD Sep 03, 2016 13:12
[2016-09-03 12:00] VITALS: BP 108/63; PULSE 82; RESP 17; TEMP 98; O2SAT 96
[2016-09-03] MEDS: LEVOFLOXACIN 750 MG PREMIX INJ 150 ML IV SCH (12:35)
[2016-09-03 16:00] VITALS: BP 116/65; PULSE 77; RESP 17; TEMP 97.8; O2SAT 98
--- NOTE | 2016-09-03 17:42 | HHI.IDPN ---
Subjective Subjective Remarks pt feels much better skin rash improved, but still itching lesions on the neck she is afebrile lactic acodosis resolved Antibiotics levaquine Allergies: Coded Allergies: Penicillin (Verified Allergy, Severe, Hives, 06/27/16) Objective . Vital Signs Date Time Temp Pulse Resp B/P Pulse Ox O2 Delivery O2 Flow Rate FiO2 09/03/16 16:00 97.8 77 17 116/65 98 09/03/16 12:00 98.0 82 17 108/63 96 09/03/16 08:00 97.7 73 17 103/51 96 09/03/16 04:00 97.5 81 20 108/57 94 09/03/16 00:00 97.5 93 20 114/60 96 09/02/16 20:00 97.3 84 20 110/49 96 09/02/16 19:13 90 09/02/16 09/02/16 09/03/16 15:00 23:00 07:00 Intake Total 2022 ml 1108 ml 500 ml Output Total 600 ml 400 ml 300 ml Balance 1422 ml 708 ml 200 ml Intake Oral 740 ml 720 ml 0 ml IV Total 1282 ml 388 ml 500 ml Output Urine Total 600 ml 400 ml 300 ml # Bowel Movements 1 . Laboratory Tests Test 09/02/16 09/03/16 06:00 07:20 White Blood Count 42.1 TH/MM3 32.4 TH/MM3 Red Blood Count 3.41 MIL/MM3 2.88 MIL/MM3 Hemoglobin 10.7 GM/DL 9.0 GM/DL Hematocrit 31.6 % 26.7 % Mean Corpuscular Volume 92.5 FL 92.5 FL Mean Corpuscular Hemoglobin 31.4 PG 31.1 PG Mean Corpuscular Hemoglobin 34.0 % 33.7 % Concent Red Cell Distribution Width 16.8 % 16.8 % Platelet Count 185 TH/MM3 187 TH/MM3 Mean Platelet Volume 8.2 FL 8.2 FL Neutrophils (%) (Auto) 95.2 % 91.9 % Lymphocytes (%) (Auto) 3.8 % 5.2 % Monocytes (%) (Auto) 0.8 % 2.2 % Eosinophils (%) (Auto) 0.1 % 0.3 % Basophils (%) (Auto) 0.1 % 0.4 % Neutrophils # (Auto) 40.0 TH/MM3 29.8 TH/MM3 Lymphocytes # (Auto) 1.6 TH/MM3 1.7 TH/MM3 Monocytes # (Auto) 0.4 TH/MM3 0.7 TH/MM3 Eosinophils # (Auto) 0.0 TH/MM3 0.1 TH/MM3 Basophils # (Auto) 0.1 TH/MM3 0.1 TH/MM3 CBC Comment AUTO DIFF AUTO DIFF Differential Total Cells 100 100 Counted Neutrophils % (Manual) 44 % 48 % Band Neutrophils % 37 % 26 % Lymphocytes % 7 % 5 % Monocytes % 5 % 5 % Neutrophils # (Manual) 37.0 TH/MM3 28.8 TH/MM3 Metamyelocytes 1 % 1 % Myelocytes 4 % 14 % Promyelocytes 2 % Differential Comment FINAL DIFF FINAL DIFF MANUAL MANUAL Toxic Granulation 2+ 2+ Platelet Estimate NORMAL NORMAL Platelet Morphology Comment NORMAL NORMAL Eosinophils % 1 % Nucleated Red Blood Cells 2 /100 WBC Ovalocytes 1+ Laboratory Tests Test 09/02/16 06:00 Sodium Level 141 MEQ/L Potassium Level 3.5 MEQ/L Chloride Level 107 MEQ/L Carbon Dioxide Level 24.8 MEQ/L Anion Gap 9 MEQ/L Blood Urea Nitrogen 12 MG/DL Creatinine 0.79 MG/DL Estimat Glomerular Filtration 73 ML/MIN Rate Random Glucose 98 MG/DL Calcium Level 7.8 MG/DL Magnesium Level 1.8 MG/DL Microbiology Date/Time Procedure Status Source Growth 09/01/16 10:35 Aerobic Blood Culture - Preliminary Resulted Blood Peripheral NO GROWTH IN 2 DAYS 09/01/16 10:35 Anaerobic Blood Culture - Preliminary Resulted Blood Peripheral NO GROWTH IN 2 DAYS 09/01/16 21:39 Aerobic Blood Culture - Preliminary Resulted Blood Line NO GROWTH IN 2 DAYS 09/01/16 21:39 Anaerobic Blood Culture - Preliminary Resulted Blood Line NO GROWTH IN 2 DAYS Imaging Last Impressions Chest X-Ray 08/30/16 0000 Signed Impressions: Service Date/Time: August 22:33 - CONCLUSION: No acute disease. Harry Orozco MD FACR Physical Exam CONSTITUTIONAL/GENERAL: This is an oebse elderly female patient, in no apparent distress. PORT in place L chest - looks OK , but stopped drawing today SKIN: fading away hives/urticara lare with ild elevation, very pruritic, pt is ocasionaly scratching neck only. Skin temperature appropriate. Not diaphoretic. EYES: No scleral icterus. No injection or drainage. Fundi not examined. ENT: Hearing grossly normal. Nose without bleeding or purulent drainage. Oral mucosae without visible erythema, exudates, masses, or lesions. CARDIOVASCULAR: Regular rate and rhythm without murmurs, gallops, or rubs. No JVD. Peripheral pulses symmetric. RESPIRATORY/CHEST: Symmetric, unlabored respirations. Clear to auscultation. Breath sounds equal bilaterally. No wheezes, rales, or rhonchi. GASTROINTESTINAL: Abdomen soft, non-tender, nondistended. No hepato-splenomegaly , or palpable masses. No guarding. Bowel sounds present. MUSCULOSKELETAL: Extremities without clubbing, cyanosis, or edema. NEUROLOGICAL: Awake and alert. Motor and sensory grossly within normal limits. Follows commands. Cognitively sharp. Normal speech. Moves all extremities. Assessment & Plan Remarks Breast Cca, sp chemo sp Neulast Leukocytosis, leukemoid reaction with extreme bandemia and very young forms preset ? medx effect: improving - ? infx -? Neulast - ?sterroids - ? combined Hives - leikely allergic reaction to med Fever - likely 2/2 sepsis, UTi - lactic acidosis on admission ENterococcal UTI - S cipro - cont levaquine x 7-14 days ; ok to change to PO 500 daily - fu blood clx untillfinal fu WBC chk stool for C.diff if diarrhea Alaina Ziegler MD Sep 03, 2016 17:42
[2016-09-03 20:00] VITALS: BP 126/67; PULSE 71; RESP 20; TEMP 96; O2SAT 97
[2016-09-03] MEDS: FAMOTIDINE 20 MG TAB PO SCH (20:37)
[2016-09-04] VITALS (7 sets, daily range): BP systolic 106–147; BP diastolic 57–73; PULSE 70–80; RESP 17–20; TEMP 96.3–98.3; O2SAT 96–97
[2016-09-04] MEDS: diphenhydrAMINE HCL 50 MG/ML VIAL IV PUSH PRN ×5 (04:42→20:48)
[2016-09-04] MEDS: SODIUM CHLOR 0.9% 1000 ML INJ 1,000 ML IV SCH (04:45)
[2016-09-04] MEDS ORDERED: diphenhydrAMINE HCL 50 MG/ML VIAL IV PUSH ONE (05:00)
[2016-09-04] MEDS ORDERED: RESP: ALBUTEROL 2.5 MG/IPRATROPIUM 0.5 MG NEB (PRN) NEB (05:00)
[2016-09-04 08:06] LABS: BICARBONATE 28.4 MEQ/L (21.0-32.0); CALCIUM-PROTEIN CORRECTED 8.4 MG/DL (8.5-10.1); TOTAL BILIRUBIN ADULT 0.2 MG/DL (0.2-1.0)
[2016-09-04 08:17] LABS: POTASSIUM 2.8 MEQ/L (3.5-5.1)
[2016-09-04] MEDS: METOPROLOL TARTRATE 25 MG TAB PO SCH ×2 (08:19→20:11)
[2016-09-04] MEDS: predniSONE 20 MG TAB PO SCH (08:41)
[2016-09-04] MEDS: CETIRIZINE HCL 10 MG TAB PO SCH ×2 (08:43→20:10)
[2016-09-04] MEDS: ENOXAPARIN SODIUM 40 MG/0.4 ML SYRINGE SQ SCH (08:45)
[2016-09-04] MEDS ORDERED: CALCIUM CARBONATE 500 MG CHEWABLE TAB CHEW ONE (08:45)
[2016-09-04] MEDS ORDERED: POTASSIUM CHLORIDE 10 MEQ CONTROLLED RELEASE TAB PO ONE (08:45)
[2016-09-04] MEDS: SODIUM CHLORIDE 0.9% FLUSH 5 ML FLUSH FLUSH SCH ×2 (08:48→20:11)
[2016-09-04] MEDS: SODIUM CHLOR 0.45% 1000 ML INJ 1,000 ML IV SCH ×2 (09:03→20:12)
[2016-09-04 09:50] LABS: HEMATOCRIT 27.7 % (35.0-46.0); MEAN CELL VOLUME 93.1 FL (80.0-100.0); MEAN CORPUSCULAR HEMOGLOBIN 30.9 PG (27.0-34.0); MEAN CORPUSCULAR HGB CONC 33.2 % (32.0-36.0); PLATELET COUNT 210 TH/MM3 (150-450); RED BLOOD COUNT 2.97 MIL/MM3 (4.00-5.30); RED CELL DISTRIBUTION WIDTH 16.5 % (11.6-17.2); WHITE BLOOD COUNT 25.1 TH/MM3 (4.0-11.0)
[2016-09-04 09:52] LABS: HEMO FLAGS AUTO DIFF
[2016-09-04 10:33] LABS: BANDS 10 % (0-6); METAMYELOCYTES 3 % (0-1); MYELOCYTES 3 % (0-0); NEUTROPHIL # MANUAL DIFF 21.3 TH/MM3 (1.8-7.7); PLATELET ESTIMATE SMEAR NORMAL (NORMAL); PLATELET MORPHOLOGY NORMAL (NORMAL); POLYS (SEG NEUTROPHILS) 69 % (16-70); SCAN/DIFF FINAL DIFF MANUAL; TOXIC GRANULATION 3+ (NORMAL); WBC DIFF SAMPLE 100
--- NOTE | 2016-09-04 11:56 | HHI.PR ---
Subjective Remarks Low K at 2.9. Replaced. Rash is improving. [place] sob overnight. Received nebs, O2 and benadryl and she improved. Says he has this episodes at night at times. Says her rash waas worse for 30 minutes. However rash almost dissapear by today morning. She is sattign well on room air now. no wheezing. Objective Vitals Vital Signs Date Time Temp Pulse Resp B/P Pulse Ox O2 Delivery O2 Flow Rate FiO2 09/04/16 08:00 97.6 79 17 106/57 97 09/04/16 05:36 97 Nasal Cannula 1.50 09/04/16 04:00 97.7 70 20 114/60 96 09/04/16 00:00 96.3 76 20 130/63 96 09/03/16 20:00 96.0 71 20 126/67 97 09/03/16 16:00 97.8 77 17 116/65 98 09/03/16 12:00 98.0 82 17 108/63 96 I/O 09/03/16 09/03/16 09/03/16 09/04/16 09/04/16 09/04/16 07:00 15:00 23:00 07:00 15:00 23:00 Intake Total 500 ml 521 ml 480 ml 1626 ml Output Total 300 ml 1000 ml 500 ml 900 ml Balance 200 ml -479 ml -20 ml 726 ml Intake Oral 0 ml 480 ml 0 ml IV Total 500 ml 521 ml 1626 ml Output Urine Total 300 ml 1000 ml 500 ml 900 ml # Bowel Movements 1 1 Result Diagram: 09/04/16 0925 09/04/16 0650 Imaging Last Impressions Chest X-Ray 08/30/16 0000 Signed Impressions: Service Date/Time: August 22:33 - CONCLUSION: No acute disease. Harry Orozco MD FACR Objective Remarks GENERAL: This is a well-nourished, well-developed patient, in no apparent distress. SKIN: Hives on legs, arms, head, chest almost dissapear , rash improved significantly. Faint rash on the neck.. Alopecia. Hives on head improved first and dissapeared now. No ecchymoses or lesions. Cool and dry. HEAD: Atraumatic. Normocephalic. EYES: No scleral icterus. No injection or drainage. ENT: Nose without bleeding, purulent drainage. NECK: Trachea midline. No JVD or lymphadenopathy. CARDIOVASCULAR: Regular rate and rhythm without murmurs, gallops, or rubs. RESPIRATORY: Clear to auscultation. Breath sounds equal bilaterally. No wheezes , rales, or rhonchi. GASTROINTESTINAL: Abdomen soft, non-tender, nondistended. No guarding. MUSCULOSKELETAL: Extremities without clubbing, cyanosis, or edema. No calf tenderness. NEUROLOGICAL: Awake and alert. Motor and sensory grossly within normal limits. Normal speech. A/P Problem List: (1) Hives ICD Code: L50.9 Status: Acute (2) Neutropenic fever ICD Code: D70.9 Status: Acute (3) Urinary tract infection ICD Code: N39.0 Status: Acute (4) Diarrhea ICD Code: R19.7 Status: Acute (5) Nausea & vomiting ICD Code: R11.2 Status: Acute (6) Sepsis ICD Code: A41.9 Status: Acute Assessment and Plan Sepsis - Lactic acid 2.4 on admission , elevated again on 09/01 T 4 with repeat 1.8 - WBC 14.9 and tachycardia on admission - WBC spiked to 41.8K 09/01/16 and stays elevated - Normal saline at 100 cc per hour - Cefepime 2 g IV every 8 hours . DC cefepime and started levaquin 09/01/15 - Discussed with Kori BELL/ Dr Gudino from hem/onc service. DC losartan and lactobacillus as may cause rash. Patient tachycardic and also with elevated BP will start metoprolol 12.5 bid. Also Change antibiotic to levaquin IV as patient with marked leukocytosis (note patient had neulasta 1 week prior) Patient also has a PORT that is not working well. - Consult ID specialist, seen by Dr Wen DIXON , appreciate recommendations cont levaquine x 7-14 days ; ok to change to PO 500 daily per ID specialist. UTI Neutropenic Fever - Empiric antibiotic treatment with levaquin - Urine culture E Fecalis. Cont levaquine x 7-14 days ; ok to change to PO [address] Wen DIXON specialist - Consult oncology - patient follows with Dr. Calix for breast cancer Hives - Benadryl 25 mg IV q4h PRN pruritus - Add prednisone 40 mg po daily - Add topical antipruritics 09/02 Severe allergic reaction with rash on the trunk and LE, now with low BP and swelling of her lips angioedema like. Monitor VS closely . Give epinephrine 0.3 IM once . If low BP and respiratory compromise will transfer to ICU. Hold metoprolol if SBP< 120 and HR<65 DC losartan and lactobacillus as may cause rash 09/01 (last taken) DC cefepime and started levaquin IV 09/01 Patient has a h/o gastroparesis and takes bethanecol 12.5 mg po before meals at night. Will restart Diarrhea, n/v - likely secondary to chemotherapy. - check for c. diff given recent treatment with ciprofloxacin in July 2016. Pending as patient did not have diarrhea anymore DVT prophylaxis - lovenox 40 mg subq daily Discussed Condition With patient, patient's , nurse, hem/onc service Problem Qualifiers (1) Sepsis: Qualified Code: A41.9 - Sepsis, due to unspecified organism Ade Oviedo MD Sep 04, 2016 11:56
[2016-09-04] MEDS: LEVOFLOXACIN 750 MG PREMIX INJ 150 ML IV SCH (12:39)
[2016-09-04] MEDS ORDERED: CALCIUM CARBONATE 500 MG CHEWABLE TAB CHEW PRN (17:00)
--- NOTE | 2016-09-04 20:03 | PD.ONC.PN ---
Subjective Subjective Remarks had transient sob/wheezing today with rash briefly worsening over neck. Objective Data Date Time Temp Pulse Resp B/P Pulse Ox O2 Delivery O2 Flow Rate FiO2 09/04/16 16:00 98.3 74 17 139/71 97 09/04/16 12:00 97.8 80 17 121/70 96 09/04/16 08:00 97.6 79 17 106/57 97 09/04/16 05:36 97 Nasal Cannula 1.50 09/04/16 04:00 97.7 70 20 114/60 96 09/04/16 00:00 96.3 76 20 130/63 96 09/03/16 20:00 96.0 71 20 126/67 97 09/04/16 09/04/16 09/04/16 07:00 15:00 23:00 Intake Total 1626 ml 738 ml 340 ml Output Total 900 ml 1200 ml Balance 726 ml 738 ml -860 ml Result Diagram: 09/04/16 0925 09/04/16 0650 Laboratory Results Laboratory Tests Test 09/04/16 09/04/16 06:50 09:25 Sodium Level 145 MEQ/L Potassium Level 2.8 MEQ/L Chloride Level 109 MEQ/L Carbon Dioxide Level 28.4 MEQ/L Anion Gap 8 MEQ/L Blood Urea Nitrogen 11 MG/DL Creatinine 0.62 MG/DL Estimat Glomerular Filtration 97 ML/MIN Rate Random Glucose 71 MG/DL Calcium Level 7.3 MG/DL Protein Corrected Calcium 8.4 MG/DL Total Bilirubin 0.2 MG/DL Aspartate Amino Transf 14 U/L (AST/SGOT) Alanine Aminotransferase 23 U/L (ALT/SGPT) Alkaline Phosphatase 77 U/L Lactate Dehydrogenase 324 U/L Total Protein 5.1 GM/DL Albumin 2.3 GM/DL White Blood Count 25.1 TH/MM3 Red Blood Count 2.97 MIL/MM3 Hemoglobin 9.2 GM/DL Hematocrit 27.7 % Mean Corpuscular Volume 93.1 FL Mean Corpuscular Hemoglobin 30.9 PG Mean Corpuscular Hemoglobin 33.2 % Concent Red Cell Distribution Width 16.5 % Platelet Count 210 TH/MM3 Mean Platelet Volume 7.9 FL Neutrophils (%) (Auto) % Lymphocytes (%) (Auto) % Monocytes (%) (Auto) % Eosinophils (%) (Auto) % Basophils (%) (Auto) % Neutrophils # (Auto) TH/MM3 Lymphocytes # (Auto) TH/MM3 Monocytes # (Auto) TH/MM3 Eosinophils # (Auto) TH/MM3 Basophils # (Auto) TH/MM3 CBC Comment AUTO DIFF Differential Total Cells 100 Counted Neutrophils % (Manual) 69 % Band Neutrophils % 10 % Lymphocytes % 12 % Monocytes % 3 % Neutrophils # (Manual) 21.3 TH/MM3 Metamyelocytes 3 % Myelocytes 3 % Differential Comment FINAL DIFF MANUAL Toxic Granulation 3+ Platelet Estimate NORMAL Platelet Morphology Comment NORMAL Culture Results Microbiology Date/Time Procedure Status Source Growth 09/01/16 21:39 Aerobic Blood Culture - Preliminary Resulted Blood Line NO GROWTH IN 3 DAYS 09/01/16 21:39 Anaerobic Blood Culture - Preliminary Resulted Blood Line NO GROWTH IN 3 DAYS Administered Medications Medications (Trade) Dose Ordered Sig/Yuniel Route PRN Reason Start Time Stop Time Status Last Admin Dose Admin IV Flush (NS Flush) 2 ml UNSCH PRN FLUSH FLUSH AFTER USING IV ACCESS 08/31/16 02:00 09/02/16 13:52 IV Flush (NS Flush) 2 ml BID FLUSH 08/31/16 09:00 09/01/16 21:47 Ondansetron HCl (Zofran Inj) 4 mg Q6H PRN IVP NAUSEA OR VOMITING 08/31/16 02:00 09/01/16 08:37 Enoxaparin Sodium (Lovenox Inj) 40 mg Q24H SQ 08/31/16 09:00 09/04/16 08:45 Famotidine (Pepcid) 20 mg HS PO 08/31/16 21:00 09/03/16 20:37 Diphenhydramine HCl (Benadryl Inj) 25 mg Q4H PRN IV PUSH pruritis 08/31/16 05:30 09/04/16 16:34 Prednisone (Deltasone) 40 mg DAILY PO 09/01/16 09:00 09/04/16 08:41 Metoprolol Tartrate (Lopressor) 12.5 mg Q12HR PO 09/01/16 11:15 09/01/16 20:25 Sennosides (Senokot) 8.6 mg HS PRN PO CONSTIPATION 09/01/16 14:30 09/01/16 21:45 Diphenhydramine HCl (Benadryl 2% Cream) 1 applic TID PRN TOPICAL ITCHING 09/01/16 14:30 09/03/16 08:41 Triamcinolone Acetonide (Aristocort 0.1% Cream) 1 applic Q6HR PRN TOPICAL rash 09/01/16 14:30 09/03/16 08:42 Heparin Sodium (Porcine) 250 units 250 units UNSCH PRN IVF SEE PROTOCOL TABLE 09/01/16 20:00 09/03/16 06:24 Sodium Chloride (1/2 NS 1000 ml Inj) 1,000 ml @ 100 mls/hr Q10H IV 09/04/16 09:00 09/04/16 09:03 Calcium Carbonate (Tums Chew) 500 mg Q8H PRN CHEW dyspepsia 09/04/16 17:00 09/04/16 17:43 Objective Remarks GENERAL: looks better and rash is less SKIN: Warm and dry. HEAD: Normocephalic. EYES: No scleral icterus. No injection or drainage. NECK: Supple, trachea midline. No JVD or lymphadenopathy. LYMPHATIC: No adenopathy. CARDIOVASCULAR: Regular rate and rhythm without murmurs. RESPIRATORY: Breath sounds equal bilaterally. No accessory muscle use. GASTROINTESTINAL: Abdomen soft, non-tender, nondistended. EXTREMITIES: trace edema. MUSCULOSKELETAL: Adequate muscle tone. NEUROLOGICAL: No obvious focal deficit. Awake, alert, and oriented x3. PSYCHIATRIC: Appropriate mood and affect; insight and judgment normal. skin- rash 80% better. Assessment/Plan Assessment 1: overall she appears to be improving with less rash and WBC and LDH are falling. I would not discharge until she is improving for a full 24 hours without exacerbations especially respiratory. When time comes for discharge she can go home on a tapering dose of steroids and daily zyrtec and H2 myrna. Tomorrow would discontinue the IV fluids as I do not see a need for further fluids. I am very grateful for the help. Situation discussed with her . Rogelio Calix MD Sep 04, 2016 20:03
[2016-09-04] MEDS: FAMOTIDINE 20 MG TAB PO SCH (20:11)
[2016-09-05] VITALS: BP 139/69; PULSE 68; RESP 17; TEMP 96.2; O2SAT 98
[2016-09-05] MEDS: diphenhydrAMINE HCL 50 MG/ML VIAL IV PUSH PRN ×3 (00:41→08:30)
[2016-09-05] MEDS: SODIUM CHLOR 0.45% 1000 ML INJ 1,000 ML IV SCH (04:36)
[2016-09-05 05:32] LABS: AUTOMATED NEUTROPHIL # 21.3 TH/MM3 (1.8-7.7); BASOPHIL # 0.1 TH/MM3 (0-0.2); BASOPHIL % 0.6 % (0.0-2.0); EOSINOPHIL # 0.3 TH/MM3 (0-0.4); EOSINOPHIL % 1.1 % (0.0-4.0); HEMATOCRIT 25.3 % (35.0-46.0); LYMPH % 7.2 % (9.0-44.0); LYMPHOCYTE # 1.8 TH/MM3 (1.0-4.8); MEAN CELL VOLUME 92.5 FL (80.0-100.0); MEAN CORPUSCULAR HEMOGLOBIN 31.3 PG (27.0-34.0); MEAN CORPUSCULAR HGB CONC 33.9 % (32.0-36.0); MONO % 3.6 % (0.0-8.0); NEUT % 87.5 % (16.0-70.0); PLATELET COUNT 217 TH/MM3 (150-450); RED BLOOD COUNT 2.74 MIL/MM3 (4.00-5.30); RED CELL DISTRIBUTION WIDTH 16.6 % (11.6-17.2); WHITE BLOOD COUNT 24.3 TH/MM3 (4.0-11.0)
[2016-09-05 05:37] LABS: HEMO FLAGS AUTO DIFF
[2016-09-05 05:57] LABS: BICARBONATE 29.5 MEQ/L (21.0-32.0); POTASSIUM 3.3 MEQ/L (3.5-5.1)
[2016-09-05 06:58] LABS: BANDS 9 % (0-6); CORRECTED NUCLEATED RBC 1 /100 WBC (0-0); METAMYELOCYTES 3 % (0-1); MYELOCYTES 4 % (0-0); NEUTROPHIL # MANUAL DIFF 21.4 TH/MM3 (1.8-7.7); POLYS (SEG NEUTROPHILS) 72 % (16-70); SCAN/DIFF FINAL DIFF MANUAL; WBC DIFF SAMPLE 100
[2016-09-05 06:59] LABS: PLATELET ESTIMATE SMEAR NORMAL (NORMAL); PLATELET MORPHOLOGY NORMAL (NORMAL)
[2016-09-05 07:00] LABS: KERATOCYTES OCC (NORMAL); TOXIC GRANULATION 3+ (NORMAL)
[2016-09-05 08:00] VITALS: BP 126/66; PULSE 65; RESP 18; TEMP 97.5; O2SAT 95
[2016-09-05] MEDS ORDERED: SENN8.6T15 PO (08:29)
[2016-09-05] MEDS ORDERED: METO25TA3 PO (08:29)
[2016-09-05] MEDS ORDERED: LEVA750T PO (08:29)
[2016-09-05] MEDS ORDERED: BENA25TA3 PO (08:29)
[2016-09-05] MEDS ORDERED: TRIA.1%T TOPICAL (08:29)
[2016-09-05] MEDS ORDERED: SM A2CRE3 TOPICAL (08:29)
--- NOTE | 2016-09-05 08:29 | HHI.DCPOC ---
Discharge Care Plan Goals to Promote Your Health * To prevent worsening of your condition and complications * To maintain your health at the optimal level Directions to Meet Your Goals Take your medications as prescribed Follow your dietary instruction Follow activity as directed Keep your appointments as scheduled Take your immunizations and boosters as scheduled If your symptoms worsen call your PCP, if no PCP go to Urgent Care Center or Emergency Room Smoking is Dangerous to Your Health. Avoid second hand smoke Call the 24-hour hour crisis hotline for domestic abuse at Ade Oviedo MD Sep 05, 2016 08:29
[2016-09-05] MEDS: predniSONE 20 MG TAB PO SCH (08:32)
[2016-09-05] MEDS: CETIRIZINE HCL 10 MG TAB PO SCH (08:33)
[2016-09-05] MEDS: ENOXAPARIN SODIUM 40 MG/0.4 ML SYRINGE SQ SCH (08:33)
[2016-09-05] MEDS: METOPROLOL TARTRATE 25 MG TAB PO SCH (08:33)
--- NOTE | 2016-09-05 08:33 | HHI.DS ---
Discharge Summary Admission Date Aug 31, 2016 at 00:32 Discharge Date: Sep 05, 2016 Admitting Diagnosis Sepsis, UTI, Chemo (1) Hives ICD Code: L50.9 Diagnosis: Principal (2) Neutropenic fever ICD Code: D70.9 Diagnosis: Principal (3) Urinary tract infection ICD Code: N39.0 Diagnosis: Principal (4) Diarrhea ICD Code: R19.7 Diagnosis: Secondary (5) Nausea & vomiting ICD Code: R11.2 Diagnosis: Secondary (6) Sepsis ICD Code: A41.9 Diagnosis: Principal (7) Breast cancer in female ICD Code: C50.919 Diagnosis: Secondary (8) Thrombocytopenia ICD Code: D69.6 Diagnosis: Secondary Procedures none Brief History - From Admission Mrs. Cheung is a 66-year-old patient with a history of breast cancer on chemotherapy (followed by Dr. Calix) who presented to the emergency room on 08/30 with complaint of fever and hives. WBC elevated at 14.9, urinalysis suggestive of infection with culture pending. The patient is tachycardic and meets sepsis criteria with leukocytosis and UTI. The patient is seen in the ER where she reports that she developed severe, diffuse, pruritic hives all over her body yesterday- last chemotherapy was given August 22. She took one dose of Biotin yesterday to promote hair growth due to alopecia secondary to chemotherapy. No other medication changes - has taken Biotin in the past without reaction. Denies food allergies. Reports allergies to dogs, cats, dust, and penicillin. She has been having diarrhea, nausea, and vomiting which is most likely due to chemotherapy, however , she did receive Ciprofloxacin for UTI in July. . CBC/BMP: 09/05/16 0515 09/05/16 0515 Significant Findings Laboratory Tests Test 09/03/16 09/04/16 09/04/16 09/05/16 07:20 06:50 09:25 05:15 White Blood Count 32.4 TH/MM3 25.1 TH/MM3 24.3 TH/MM3 (4.0-11.0) (4.0-11.0) (4.0-11.0) Red Blood Count 2.88 MIL/MM3 2.97 MIL/MM3 2.74 MIL/MM3 (4.00-5.30) (4.00-5.30) (4.00-5.30) Hemoglobin 9.0 GM/DL 9.2 GM/DL 8.6 GM/DL (11.6-15.3) (11.6-15.3) (11.6-15.3) Hematocrit 26.7 % 27.7 % 25.3 % (35.0-46.0) (35.0-46.0) (35.0-46.0) Neutrophils (%) (Auto) 91.9 % 87.5 % (16.0-70.0) (16.0-70.0) Lymphocytes (%) (Auto) 5.2 % 7.2 % (9.0-44.0) (9.0-44.0) Neutrophils # (Auto) 29.8 TH/MM3 21.3 TH/MM3 (1.8-7.7) (1.8-7.7) Band Neutrophils % 26 % (0-6) 10 % (0-6) 9 % (0-6) Lymphocytes % 5 % (9-44) 7 % (9-44) Neutrophils # (Manual) 28.8 TH/MM3 21.3 TH/MM3 21.4 TH/MM3 (1.8-7.7) (1.8-7.7) (1.8-7.7) Myelocytes 14 % (0-0) 3 % (0-0) 4 % (0-0) Nucleated Red Blood Cells 2 /100 WBC 1 /100 WBC (0-0) (0-0) Toxic Granulation 2+ (NORMAL) 3+ (NORMAL) 3+ (NORMAL) Ovalocytes 1+ (NORMAL) Potassium Level 2.8 MEQ/L 3.3 MEQ/L (3.5-5.1) (3.5-5.1) Chloride Level 109 MEQ/L (98-107) Random Glucose 71 MG/DL (74-106) Calcium Level 7.3 MG/DL 8.1 MG/DL (8.5-10.1) (8.5-10.1) Protein Corrected Calcium 8.4 MG/DL (8.5-10.1) Aspartate Amino Transf 14 U/L (15-37) (AST/SGOT) Lactate Dehydrogenase 324 U/L (84-246) Total Protein 5.1 GM/DL (6.4-8.2) Albumin 2.3 GM/DL (3.4-5.0) Metamyelocytes 3 % (0-1) 3 % (0-1) Neutrophils % (Manual) 72 % (16-70) Keratocytes OCC (NORMAL) Estimat Glomerular Filtration 85 ML/MIN (>89) Rate Imaging Last Impressions Chest X-Ray 08/30/16 0000 Signed Impressions: Service Date/Time: August 22:33 - CONCLUSION: No acute disease. Harry Orozco MD FACR PE at Discharge GENERAL: This is a well-nourished, well-developed patient, in no apparent distress. SKIN: Hives on legs, arms, head, chest almost dissapear , rash improved significantly. Faint rash on the neck.. Alopecia. Hives on head improved first and dissapeared now. No ecchymoses or lesions. Cool and dry. HEAD: Atraumatic. Normocephalic. EYES: No scleral icterus. No injection or drainage. ENT: Nose without bleeding, purulent drainage. NECK: Trachea midline. No JVD or lymphadenopathy. CARDIOVASCULAR: Regular rate and rhythm without murmurs, gallops, or rubs. RESPIRATORY: Clear to auscultation. Breath sounds equal bilaterally. No wheezes , rales, or rhonchi. GASTROINTESTINAL: Abdomen soft, non-tender, nondistended. No guarding. MUSCULOSKELETAL: Extremities without clubbing, cyanosis, or edema. No calf tenderness. NEUROLOGICAL: Awake and alert. Motor and sensory grossly within normal limits. Normal speech. Pt update on day of discharge Feel smuch better. Rash has improved. However she does have intermittent rash. no feevr or chills. No wheezing or sob. Hospital Course Sepsis - Lactic acid 2.4 on admission , elevated again on 09/01 T 4 with repeat 1.8 - WBC 14.9 and tachycardia on admission - WBC spiked to 41.8K 09/01/16 and stays elevated - Normal saline at 100 cc per hour - Cefepime 2 g IV every 8 hours . DC cefepime and started levaquin 09/01/15 - Discussed with Kori BELL/ Dr Gudino from hem/onc service. DC losartan and lactobacillus as may cause rash. Patient tachycardic and also with elevated BP will start metoprolol 12.5 bid. Also Change antibiotic to levaquin IV as patient with marked leukocytosis (note patient had neulasta 1 week prior) Patient also has a PORT that is not working well. - Consult ID specialist, seen by Dr Carver ID , appreciate recommendations cont levaquine x 7-14 days ; ok to change to PO 500 daily per ID specialist Dr Carver. UTI Neutropenic Fever - Empiric antibiotic treatment with levaquin - Urine culture E Fecalis. Cont levaquine x 7-14 days ; ok to change to PO [address] Carver ID specialist - Consult oncology - patient follows with Dr. Calix for breast cancer Hives - Benadryl 25 mg IV q4h PRN pruritus - Add prednisone 40 mg po daily - Add topical antipruritics 09/02 Severe allergic reaction with rash on the trunk and LE, now with low BP and swelling of her lips angioedema like. Monitor VS closely . Give epinephrine 0.3 IM once . If low BP and respiratory compromise will transfer to ICU. Hold metoprolol if SBP< 120 and HR<65 DC losartan and lactobacillus as may cause rash 09/01 (last taken) DC cefepime and started levaquin IV 09/01 zantac 150 mg bid zyrtic 1 pill daily prednisone 30 mg for 3 days, 20 mg for 3 days, 10 mg for 3 days then if well no prednisone Patient has a h/o gastroparesis and takes bethanecol 12.5 mg po before meals at night. Will restart Diarrhea, n/v - likely secondary to chemotherapy. - check for c. diff given recent treatment with ciprofloxacin in July 2016. Patient did not have diarrhea anymore DVT prophylaxis - lovenox 40 mg subq daily Discussed Condition With patient, patient's , nurse, hem/onc service Dr Calix Patient improved. Was DC in fairly well condition to follow up with PCP and consultants. Pt Condition on Discharge: Fair Discharge Disposition: Disch w/ Home Health Serv Discharge Time: > 30 minutes Discharge Instructions DIET: Follow Instructions for: Heart Healthy Diet Activities you can perform: Regular-No Restrictions Follow up Referrals: Allergy & Immunology - 1 Week Oncology - 1 Week PCP Follow-up - 3-5 Days New Medications: Albuterol 18 GM Inh (Ventolin Hfa 18 GM Inh) 90 Mcg/Act Aer 2 PUFF INH Q4-6H PRN SHORTNESS OF BREATH #1 Ref 0 INHALER Cetirizine (Zyrtec Allergy) 10 Mg Cap 10 MG PO DAILY Allergies #30 Ref 0 CAP Diphenhydramine (Benadryl Allergy) 25 Mg Tab 25 MG PO Q6H PRN ALLERGIES #20 Ref 0 TAB Prednisone (Prednisone) 10 Mg Tab 30 MG PO DAILY take 30 mg for 3 days , then 20 mg for 3 days and 10 mg for 3 days then if well no prednisone Allergies #50 Ref 0 TAB Ranitidine (Zantac) 150 Mg Tab 150 MG PO BID Reduce Stomach Acid #60 Ref 0 TAB Diphenhydramine-Zinc Acetate (Sm Anti-Itch Extra Streng 2-0.1 %) 1 Cre Cre 1 APPLIC TOPICAL TID PRN ITCHING #14 TUBE Levofloxacin (Levaquin) 750 Mg Tab 500 MG PO DAILY infection #10 TAB Metoprolol Tartrate (Metoprolol Tartrate) 25 Mg Tab 12.5 MG PO Q12HR Blood Pressure Management #60 TAB Sennosides (Senna Lax) 8.6 Mg Tab 8.6 MG PO HS PRN CONSTIPATION #30 TAB Triamcinolone Topical (Triamcinolone Topical) 0.1% Cream 1 APPLIC TOPICAL Q6HR PRN rash #14 TUBE Continued Medications: Alprazolam (Xanax) 0.25 Mg Tab 0.25 MG PO HS PRN INSOMNIA Ref 0 TAB ([bephanophal]) 1 CAP PO TID Discontinued Medications: Lactobacillus Acidophilus (Acidophilus/l-Sporogenes) 1 Tab Tab 1 TAB PO Q12HR probiotic Days 30 TAB Losartan (Losartan) 50 Mg Tab 50 MG PO DAILY Blood Pressure Management #30 Ref 0 TAB Ranitidine (Zantac) 150 Mg Tab 150 MG PO HS Reduce Stomach Acid #30 Ref 0 TAB Ade Oviedo MD Sep 05, 2016 08:33
--- NOTE | 2016-09-05 08:33 | HHI.FF ---
Face to Face Verification Diagnosis: (1) Neutropenic fever (2) Urinary tract infection (3) Thrombocytopenia (4) Hives (5) GERD (gastroesophageal reflux disease) (6) Hypertension (7) Gastroparesis (8) Breast cancer in female Physical Therapy Order: Evaluate and Treat I have seen patient Kylee Cheung on 09/05/16. My clinical findings support the need for the requested home health care services because: Ltd mobility - disease progression I certify that my clinical findings support that this patient is homebound because: Post-op weakness Impaired cognitive ability/safety Aed Oviedo MD Sep 05, 2016 08:33
[2016-09-05] MEDS ORDERED: VENTAER INH (08:34)
[2016-09-05] MEDS: SODIUM CHLORIDE 0.9% FLUSH 5 ML FLUSH FLUSH SCH (08:35)
[2016-09-05] MEDS ORDERED: LEVOFLOXACIN 750 MG TAB PO SCH (09:00)
--- NOTE | 2016-09-05 09:13 | PD.ONC.PN ---
Subjective Subjective Remarks rash comes and goes but much less and almost gone today. Objective Data Date Time Temp Pulse Resp B/P Pulse Ox O2 Delivery O2 Flow Rate FiO2 09/05/16 08:00 97.5 65 18 126/66 95 09/05/16 00:00 96.2 68 17 139/69 98 09/04/16 20:00 96.3 79 17 147/73 96 09/04/16 16:00 98.3 74 17 139/71 97 09/04/16 12:00 97.8 80 17 121/70 96 09/05/16 09/05/16 09/05/16 07:00 15:00 23:00 Intake Total 240 ml 240 ml Balance 240 ml 240 ml Result Diagram: 09/05/16 0515 09/05/16 0515 Laboratory Results Laboratory Tests Test 09/04/16 09/05/16 09:25 05:15 White Blood Count 25.1 TH/MM3 24.3 TH/MM3 Red Blood Count 2.97 MIL/MM3 2.74 MIL/MM3 Hemoglobin 9.2 GM/DL 8.6 GM/DL Hematocrit 27.7 % 25.3 % Mean Corpuscular Volume 93.1 FL 92.5 FL Mean Corpuscular Hemoglobin 30.9 PG 31.3 PG Mean Corpuscular Hemoglobin 33.2 % 33.9 % Concent Red Cell Distribution Width 16.5 % 16.6 % Platelet Count 210 TH/MM3 217 TH/MM3 Mean Platelet Volume 7.9 FL 7.9 FL Neutrophils (%) (Auto) % 87.5 % Lymphocytes (%) (Auto) % 7.2 % Monocytes (%) (Auto) % 3.6 % Eosinophils (%) (Auto) % 1.1 % Basophils (%) (Auto) % 0.6 % Neutrophils # (Auto) TH/MM3 21.3 TH/MM3 Lymphocytes # (Auto) TH/MM3 1.8 TH/MM3 Monocytes # (Auto) TH/MM3 0.9 TH/MM3 Eosinophils # (Auto) TH/MM3 0.3 TH/MM3 Basophils # (Auto) TH/MM3 0.1 TH/MM3 CBC Comment AUTO DIFF AUTO DIFF Differential Total Cells 100 100 Counted Neutrophils % (Manual) 69 % 72 % Band Neutrophils % 10 % 9 % Lymphocytes % 12 % 7 % Monocytes % 3 % 5 % Neutrophils # (Manual) 21.3 TH/MM3 21.4 TH/MM3 Metamyelocytes 3 % 3 % Myelocytes 3 % 4 % Differential Comment FINAL DIFF FINAL DIFF MANUAL MANUAL Toxic Granulation 3+ 3+ Platelet Estimate NORMAL NORMAL Platelet Morphology Comment NORMAL NORMAL Nucleated Red Blood Cells 1 /100 WBC Keratocytes OCC Sodium Level 142 MEQ/L Potassium Level 3.3 MEQ/L Chloride Level 106 MEQ/L Carbon Dioxide Level 29.5 MEQ/L Anion Gap 7 MEQ/L Blood Urea Nitrogen 11 MG/DL Creatinine 0.69 MG/DL Estimat Glomerular Filtration 85 ML/MIN Rate Random Glucose 74 MG/DL Calcium Level 8.1 MG/DL Administered Medications Medications (Trade) Dose Ordered Sig/Yuniel Route PRN Reason Start Time Stop Time Status Last Admin Dose Admin IV Flush (NS Flush) 2 ml UNSCH PRN FLUSH FLUSH AFTER USING IV ACCESS 08/31/16 02:00 09/02/16 13:52 IV Flush (NS Flush) 2 ml BID FLUSH 08/31/16 09:00 09/01/16 21:47 Ondansetron HCl (Zofran Inj) 4 mg Q6H PRN IVP NAUSEA OR VOMITING 08/31/16 02:00 09/01/16 08:37 Enoxaparin Sodium (Lovenox Inj) 40 mg Q24H SQ 08/31/16 09:00 09/05/16 08:33 Famotidine (Pepcid) 20 mg HS PO 08/31/16 21:00 09/04/16 20:11 Diphenhydramine HCl (Benadryl Inj) 25 mg Q4H PRN IV PUSH pruritis 08/31/16 05:30 09/05/16 08:30 Prednisone (Deltasone) 40 mg DAILY PO 09/01/16 09:00 09/05/16 08:32 Metoprolol Tartrate (Lopressor) 12.5 mg Q12HR PO 09/01/16 11:15 09/05/16 08:33 Sennosides (Senokot) 8.6 mg HS PRN PO CONSTIPATION 09/01/16 14:30 09/01/16 21:45 Diphenhydramine HCl (Benadryl 2% Cream) 1 applic TID PRN TOPICAL ITCHING 09/01/16 14:30 09/03/16 08:41 Triamcinolone Acetonide (Aristocort 0.1% Cream) 1 applic Q6HR PRN TOPICAL rash 09/01/16 14:30 09/03/16 08:42 Heparin Sodium (Porcine) 250 units 250 units UNSCH PRN IVF SEE PROTOCOL TABLE 09/01/16 20:00 09/03/16 06:24 Sodium Chloride (1/2 NS 1000 ml Inj) 1,000 ml @ 100 mls/hr Q10H IV 09/04/16 09:00 09/05/16 04:36 Levofloxacin (Levaquin) 500 mg DAILY PO 09/05/16 09:00 09/14/16 08:59 09/05/16 08:34 Calcium Carbonate (Tums Chew) 500 mg Q8H PRN CHEW dyspepsia 09/04/16 17:00 09/04/16 17:43 Cetirizine HCl (ZyrTEC) 10 mg Q12HR PO 09/04/16 21:00 09/05/16 08:33 Objective Remarks GENERAL: Well-nourished, well-developed patient. SKIN: Warm and dry. HEAD: Normocephalic. EYES: No scleral icterus. No injection or drainage. NECK: Supple, trachea midline. No JVD or lymphadenopathy. LYMPHATIC: No adenopathy. CARDIOVASCULAR: Regular rate and rhythm without murmurs. RESPIRATORY: Breath sounds equal bilaterally. No accessory muscle use. GASTROINTESTINAL: Abdomen soft, non-tender, nondistended. EXTREMITIES: trace edema. MUSCULOSKELETAL: Adequate muscle tone. NEUROLOGICAL: No obvious focal deficit. Awake, alert, and oriented x3. PSYCHIATRIC: Appropriate mood and affect; insight and judgment normal. rash 90 % better. Assessment/Plan Assessment 1: continued improvement. At this point can discharge home. she will take zantac 150 mg bid zyrtic 1 pill daily prednisone 30 mg for 3 days, 20 mg for 3 days, 10 mg for 3 days then if well no prednisone I will see her in a week with bryanna partida and md visit. If further worsening will contact Dr. Young who is an radiator mechanic for urgent referral. Rogleio Calix MD Sep 05, 2016 09:13
[2016-09-05] MEDS ORDERED: ZANT150T2 PO (09:35)
[2016-09-05] MEDS ORDERED: PRED10 PO (09:35)
[2016-09-05] MEDS ORDERED: ZYRT10CA PO (09:35)
[2016-09-05] MEDS ORDERED: POTASSIUM CHLORIDE 10 MEQ CONTROLLED RELEASE TAB PO ONE (10:15)
== END 2016-09-05 11:33 | disposition home health service (06) | DRG 872 ==
LOC: NEPE 21:31 → NEDA 08-31 00:32 → N07B 08-31 06:37
PROVIDERS: ADMIT Hospitalist; ATTEND Hospitalist
DX: A41.9 Sepsis, unspecified organism (principal); E87.2 Acidosis; D69.6 Thrombocytopenia, unspecified; D70.9 Neutropenia, unspecified; K31.84 Gastroparesis; T78.3XXA Angioneurotic edema, initial encounter; C50.919 Malignant neoplasm of unspecified site of unspecified female breast; N39.0 Urinary tract infection, site not specified; I10 Essential (primary) hypertension; R50.81 Fever presenting with conditions classified elsewhere; R19.7 Diarrhea, unspecified; R11.2 Nausea with vomiting, unspecified; R00.0 Tachycardia, unspecified; L29.9 Pruritus, unspecified; T45.1X5A Adverse effect of antineoplastic and immunosuppressive drugs, initial encounter; L65.9 Nonscarring hair loss, unspecified; M85.80 Other specified disorders of bone density and structure, unspecified site; L71.9 Rosacea, unspecified; K57.90 Diverticulosis of intestine, part unspecified, without perforation or abscess without bleeding; K21.9 Gastro-esophageal reflux disease without esophagitis; N80.1 Endometriosis of ovary; Z92.21 Personal history of antineoplastic chemotherapy; Z17.0 Estrogen receptor positive status [ER+]; B95.2 Enterococcus as the cause of diseases classified elsewhere; E78.00 Pure hypercholesterolemia, unspecified; J45.909 Unspecified asthma, uncomplicated; M19.90 Unspecified osteoarthritis, unspecified site
CPT/HCPCS: 71020; 80048; 80053; 81001; 83605; 83615; 83690; 83735; 85007; 85027; 85610; 85730; 87040; 87077; 87086; 87186; 94664; 96374; J0171; J0692; J0744; J1200; J1642; J1650; J1956; J2405; J2930; J7030; J7512